=== PATIENT | female | born 1950 | race Caucasian/White ===

== ENCOUNTER 2017-02-17 10:15 | Emergency (ER) | payer BC, MEDICARE ==
[2017-02-17] MEDS ORDERED: Cyclobenzaprine TAB* 10 MG PO ONE (11:39)
[2017-02-17 12:27] VITALS: BP 142/72
--- NOTE | 2017-02-17 14:20 | RAD ---
INDICATION: Radicular neck pain. COMPARISON: There are no prior studies available for comparison. TECHNIQUE: Contiguous axial sections were obtained from the skull base through the T1 vertebra. Images were reconstructed in the sagittal and coronal planes. FINDINGS: There is straightening of the cervical spine. The vertebra are otherwise in normal alignment. No fracture is seen. At the C4-C5 level there is posterior uncinate process spurring and mild hypertrophic changes within the facet joints. There is moderate spinal canal narrowing and mild to moderate bilateral neural foraminal narrowing left greater than right. At the C5-C6 level there is posterior uncinate process spurring and mild hypertrophic changes within the facet joints. There is moderate spinal canal narrowing and moderate bilateral neural foraminal narrowing. At the C6-C7 level there is posterior uncinate process spurring. There is moderate spinal canal narrowing and mild to moderate bilateral neural foraminal narrowing. IMPRESSION: MODERATE DEGENERATIVE DISC DISEASE AND FACET OSTEOARTHRITIS WITH CHANGES MOST PROMINENT AT THE C4-C5, C5-C6 AND C6-C7 LEVELS GIVING RISE TO MODERATE SPINAL CANAL NARROWING AND BILATERAL NEURAL FORAMINAL NARROWING. IF THE PATIENT'S SYMPTOMS PERSIST RECOMMEND MR IMAGING FOR FURTHER EVALUATION.
--- NOTE | 2017-02-17 14:24 | UC ---
shivam Bishop Timothy, scribed for Claude Rios MD on 02/17/17 at 1140 . Neck Pain HPI - HPI Summary HPI Summary: Rubina Cortes is a 66 yo female presenting to [facility] claiming she has a pinched nerve in her neck, causing sharp 8/10 pain radiating to her right side of her neck and down her right shoulder for the past week. She states she was Tx 1.5 months ago for similar Sx with "muscle relaxer" by [facility] urgent care. She has not followed up with her primary care physician as her Sx resolved. She denies any known trauma. She denies any weakness, numbness, or parasthesia. Her MHx includes thyroid disease, afib, PVC, SVT, HLD, HTN, arthritis, , left shoulder surgery, anxiety, tobacco use. - History of Current Complaint Chief Complaint: UCBackPain Stated Complaint: PITCHED NERVE Time Seen by Provider: 02/17/17 11:30 Hx Obtained From: Patient Mechanism Of Injury: No Known Trauma Timing: Constant Onset/Duration: Sudden Onset, Lasting Days, Still Present Severity: Moderate Pain Intensity: 8 Pain Scale Used: 0-10 Numeric Location: Discrete At: - right neck, Radiates To: - right shoulder Character: Sharp - Allergies/Home Medications Allergies/Adverse Reactions: Allergies Allergy/AdvReac Type Severity Reaction Status Date / Time No Known Allergies Allergy Verified 02/17/17 10:22 PMH/Surg Hx/FS Hx/Imm Hx Endocrine History: Thyroid Disease Cardiovascular History: Hypertension, Atrial Fibrillation, Other Other Cardiovascular History: PVC, SVT, HLD - Surgical History Surgical History: Yes Surgery Procedure, Year, and Place: c section, left shoulder surgery, ablation - Family History Known Family History: Positive: Cardiac Disease - self Negative: Hypertension, Diabetes - Social History Occupation: Employed Full-time - pre-k teacher Alcohol Use: Occasionally Alcohol Amount: 3-4 MONTH Substance Use Type: None Smoking Status (MU): Former Smoker Type: Cigarettes Amount Used/How Often: 1/2 PPD Have You Smoked in the Last Year: Yes When Did the Patient Quit Smoking/Using Tobacco: 2012 - Immunization History Most Recent Influenza Vaccination: na Most Recent Tetanus Shot: unknown Most Recent Pneumonia Vaccination: na Review Of Systems Constitutional: Positive: Negative Skin: Positive: Negative Eyes: Positive: Negative ENT: Positive: Negative Respiratory: Positive: Negative Cardiovascular: Positive: Negative Gastrointestinal: Positive: Negative Genitourinary: Positive: Negative Musculoskeletal: Positive: Other: - right neck pain radiating to right shoulder Neurological: Positive: Negative Psychological: Positive: Negative All Other Systems Reviewed And Are Negative: Yes Physical Exam Triage Information Reviewed: Yes Vital Signs: Initial Vital Signs Temp 98.7 F 02/17/17 10:18 Pulse 84 02/17/17 10:18 Resp 18 02/17/17 10:18 BP 162/90 02/17/17 10:18 Pulse Ox 100 02/17/17 10:18 Vital Signs Reviewed: Yes Eyes: Positive: Conjunctiva Clear ENT: Positive: Normal ENT inspection, Pharynx normal Neck: Positive: Tenderness @ - low neck posterior, Other: - increased muscle spasms right trapezius area.. Negative: Nuchal Rigidity Respiratory: Positive: Lungs clear, Normal breath sounds, No respiratory distress, No accessory muscle use Cardiovascular: Positive: RRR, No Murmur, Pulses Normal, Brisk Capillary Refill Abdomen Description: Positive: Nontender Musculoskeletal: Positive: Strength Intact, ROM Intact Neurological: Positive: Alert, Muscle Tone Normal, Other: - CN 2-12 grossly intact, senory grossly intact bilateral, strength 5/5 throughout. Psychological: Positive: Normal Response To Family, Age Appropriate Behavior Skin Exam: Normal Diagnostics - Radiology CT C-Spine Xray Interpretation: No Acute Changes - IMPRESSION: MODERATE DEGENERATIVE DISC DISEASE AND FACET OSTEOARTHRITIS WITH CHANGES MOST PROMINENT AT THE C4-C5, C5- C6 AND C6-C7 LEVELS GIVING RISE TO MODERATE SPINAL CANAL NARROWING AND BILATERAL NEURAL FORAMINAL NARROWING. IF THE PATIENT'S SYMPTOMS PERSIST RECOMMEND MR IMAGING FOR FURTHER EVALUATION. Radiology Interpretation Completed By: Radiologist Re-Evaluation - Re-Evaluation First Eval Re-Evaluation Time: 13:23 Change: Unchanged Comment: Discussed preliminary CT results with Pt. Answered questions posed by Pt to best of ability. Neck Pain Course/Dx - Course Course Of Treatment: Rubina Cortes is a 66 yo female presenting to [facility] with 8/ 10 right side neck pain radiating to her right shoulder. Pt medication list reviewed this visit. Pt was counseled to follow up with her primary care physician regarding her recurrent Sx, or to present to [facility] for further evaluation. She will have a C-spine CT performed. In the urgent care course she received flexeril. Discussed CT C-Spine results with Dr. Rosado for preliminary reading as Pt was anxious to leave [facility]. CT C-spine suggests degenerative disc disease and face osteoarthritis, most prominet at C4-C5, C5-C6 , and C6-C7 giving rise to moderate spinal canal narrowing and bilateral neural foraminal narrowing. After clinical examination and review of imaging study results, she will be discharged home with appropriate instructions and follow up. The CT scan results as relayed verbally to me by Dr Rosado and the need for the patient to go to her PCP were discussed with the patient. She will call to follow up with PCP and have MRI arranged. - Differential Dx/Diagnosis Differential Dx/HQI/PQRI: Other - DJD, cervical radiculopathy Provider Diagnoses: cervical radiculopathy, DJD cervical spine - Physician Notification/Consults Discussed Patient Care With: Claude Rosado - Discussed Pt CT C-Spine and results. Time Discussed With Above Provider: 13:22 - Dr Rosado states there are no fractures. She has Degenerative disk disease, and spinal stenosis. He recommends follow up with MRI as outpatient with PCP. No acute finding. Discharge - Discharge Plan Condition: Stable Disposition: HOME Prescriptions: Cyclobenzaprine TAB* [Flexeril 10 MG TAB*] 10 mg PO TID PRN #14 tab PRN Reason: Spasms Patient Education Materials: Cervical Radiculopathy (ED), Degenerative Disc Disease (ED) Referrals: Taylor Looney MD [Primary Care Provider] - 2 Days Tatiana Rodriguez MD [Medical Doctor] - 2 Days Additional Instructions: Please follow up with your primary care physician and the orthopedist provided, Dr. Rodriguez, regarding your visit to urgent care today. Return to urgent care or the emergency department with any new or recurring symptoms. The documentation as recorded by the shivam boothe Timothy accurately reflects the service I personally performed and the decisions made by me, Claude Rios MD.
== END 2017-02-17 13:45 | disposition home or self-care (01) ==
LOC: UCEAST 10:15
DX: M54.12 Radiculopathy, cervical region (principal); M47.892 Other spondylosis, cervical region; E07.9 Disorder of thyroid, unspecified; I48.91 Unspecified atrial fibrillation; I49.3 Ventricular premature depolarization; I47.1 Supraventricular tachycardia; E78.5 Hyperlipidemia, unspecified; M19.90 Unspecified osteoarthritis, unspecified site; F41.9 Anxiety disorder, unspecified; Z87.891 Personal history of nicotine dependence
CPT/HCPCS: 72125; 99212; A9270-GY; G0463

== ENCOUNTER 2018-03-18 09:26 | Observation (INO) | payer BC, MEDICARE ==
[2018-03-18] MEDS ORDERED: NS 0.9% 1000 ML* 1,000 ML IV ONE (09:38)
--- NOTE | 2018-03-18 10:06 | ED ---
Dizziness - HPI Summary HPI Summary: Pt. is a 67-year-old female who presents to emergency department for complaints of dizziness x 4 days. Patient is unable to explain her dizziness. She states the room is not spinning but she feels unsteady on her feet. Patient denies unilateral numbness, tingling or weakness. She has ever had symptoms like this in the past. Patient admits to intermittent chest pressure but denies pain or shortness of breath. She denies recent illness. She also notes mild nausea without vomiting or diarrhea. No urinary symptoms. Patient has a history of a trial fibrillation and hypertension. She notes that has not been taking her anticoagulant for about 3-4 months because she ran out and did not get a refill. She states she has been taking her blood pressure medication daily as directed. Symptoms are moderate in severity. No current modifying factors. - History Of Current Complaint Chief Complaint: EDDizziness Stated Complaint: DIZZINESS Time Seen by Provider: 03/18/18 09:38 Hx Obtained From: Patient - Allergies/Home Medications Allergies/Adverse Reactions: Allergies Allergy/AdvReac Type Severity Reaction Status Date / Time No Known Allergies Allergy Verified 03/18/18 10:23 Home Medications: Home Medications Levothyroxine TAB* [Synthroid TAB*] 150 mcg PO DAILY 03/18/18 [History Confirmed 03/18/18] Verapamil SR CAP* [Calan Sr CAP*] 360 mg PO DAILY 03/18/18 [History Confirmed ] PMH/Surg Hx/FS Hx/Imm Hx Previously Healthy: Yes Endocrine/Hematology History: Reports: Hx Thyroid Disease Denies: Hx Diabetes Cardiovascular History: Reports: Hx Angina - TIGHTNESS, Hx Hypercholesterolemia , Hx Hypertension Respiratory History: Reports: Other Respiratory Problems/Disorders - EX SMOKER Denies: Hx Asthma, Hx Chronic Obstructive Pulmonary Disease (COPD) Musculoskeletal History: Reports: Hx Arthritis Psychiatric History: Reports: Hx Anxiety - Surgical History Surgery Procedure, Year, and Place: , left shoulder surgery, ablation Infectious Disease History: No Infectious Disease History: Denies: Hx Shingles, Traveled Outside the [place] in Last 30 Days - Family History Known Family History: Positive: Cardiac Disease - self Negative: Hypertension, Diabetes - Social History Occupation: Employed Full-time Lives: With Family Alcohol Use: Occasionally Alcohol Amount: 3-4 MONTH Substance Use Type: Reports: None Smoking Status (MU): Former Smoker Type: Cigarettes Amount Used/How Often: 1/2 PPD Have You Smoked in the Last Year: Yes Review of Systems Constitutional: Negative Negative: Fever, Chills Eyes: Negative Negative: Photophobia, Blurred Vision, Diplopia ENT: Negative Positive: Chest Pain Respiratory: Negative Negative: Shortness Of Breath, Cough Positive: Nausea. Negative: Abdominal Pain, Vomiting, Diarrhea Genitourinary: Negative Musculoskeletal: Negative Skin: Negative Negative: Headache, Weakness, Paresthesia, Numbness, Syncope, Slurred Speech All Other Systems Reviewed And Are Negative: Yes Physical Exam Triage Information Reviewed: Yes Vital Signs On Initial Exam: Initial Vitals Temp Pulse Resp BP Pulse Ox 97.6 F 99 20 170/124 98 03/18/18 09:28 03/18/18 09:28 03/18/18 09:28 03/18/18 09:28 03/18/18 09:28 Vital Signs Reviewed: Yes Appearance: Positive: Well-Appearing - Patient lying in bed, appears anxious but non-toxic. Answers appropriately. Skin: Positive: Warm, Dry Head/Face: Positive: Normal Head/Face Inspection Eyes: Positive: Normal Respiratory/Lung Sounds: Positive: Clear to Auscultation, Breath Sounds Present Cardiovascular: Positive: Normal, RRR Abdomen Description: Positive: Nontender, Soft Neurological: Positive: Normal, Sensory/Motor Intact, Alert, Oriented to Person Place, Time, CN Intact II-III, Abnormal Gait - Unsteady, Finger to Nose - normal. Negative: Facial Droop, Slurred Speech, Dysphagia, Pronator Drift Present Psychiatric: Positive: Anxious - Wilmer Coma Scale Best Eye Response: 4 - Spontaneous Best Motor Response: 6 - Obeys Commands Best Verbal Response: 5 - Oriented Coma Scale Total: 15 Diagnostics - Vital Signs Vital Signs Temp Pulse Resp BP Pulse Ox 03/18/18 09:28 97.6 F 99 20 170/124 98 - Laboratory Result Diagrams: 03/18/18 09:57 03/18/18 09:57 Lab Statement: Any lab studies that have been ordered have been reviewed, and results considered in the medical decision making process. Dizzy Course/Dx - Course Course Of Treatment: Pt. presenting to the ER for 4 days of dizziness. She is afebrile. Blood pressure elevated at 170/121. She has no focal neuro deficits on exam. Will obtain labs, EKG, chest x-ray and brain CT for further evaluation. IV fluids started. Labs and urine are unremarkable. CT scan is negative for acute findings, reading per radiology. Pt. was given a dose of meclizine. 1150: Pt. is still unsteady on her feet. She held onto the wall when ambulating to the bathroom. Concern for potential posterior stroke give hx of afib. and not anticoagulated. Pt. discussed with Dr. Schuster who recommends brain MRI and neurology consult. MRI brain ordered. I spoke with Dr. Bermudez, neurology, and he will consult on pt. Plan discussed with pt. and daughter. MRI is negative. On re-exam pt. is still c/o dizziness. Results discussed with Dr. Bermudez and consult requested for intractable vertigo. Dr. Bermudez is unable to consult on pt. till the morning. He recommends admission tonight. I spoke with Dr. Carr, hospitalist, who does not feel pt. needs to be admitted for vertigo and she would be appropriate for disposition. Hospitalist will consult. Pt. will be signed out to Dar Coronel PA-C for hospitalist recommendations and disposition. - Diagnoses Differential Diagnosis/HQI/PQRI: Anxiety, Benign Paroxysmal Positional Vertigo, Coronary Artery Disease, CVA, Dysrhythmia, Meniere's Disease, Medication Reaction, Metabolic Abnormality, Myocardial Infarction, Transient Ischemic Attack Provider Diagnoses: Vertigo Discharge - Sign-Out/Discharge Documenting (check all that apply): Sign-Out Patient Signing out patient TO: Dar Coronel - Discharge Plan Condition: Stable Referrals: Taylor Looney MD [Primary Care Provider] - - Billing Disposition and Condition Condition: STABLE
[2018-03-18 10:10] LABS: ABS Basophils 0.1 10^3/ul (0-0.2); ABS Eosinophils 0.2 10^3/ul (0-0.6); ABS Lymphocytes 1.9 10^3/ul (1.0-4.8); ABS Monocytes 0.9 10^3/ul (0-0.8); ABS Nucleated RBC 0 10^3/ul; Eosinophil % 1.9 % (0-6); Hematocrit 45 % (35-47); Hemoglobin 15.3 g/dl (12.0-16.0); Lymphocyte % 21.1 % (25-47); Mean Corpuscular HGB Conc 34 g/dl (31-36); Mean Corpuscular Hemoglobin 30 pg (27-31); Mean Corpuscular Volume 88 fL (80-97); Nucleated Red Blood Cells % 0.1; Platelet Count 356 10^3/ul (150-450); Red Blood Count 5.15 10^6/ul (4.00-5.40); Red Cell Distribution Width 15 % (10.5-15); White Blood Count 9.1 10^3/ul (3.5-10.8)
--- NOTE | 2018-03-18 10:11 | RAD ---
HISTORY: dizzy COMPARISONS: None TECHNIQUE: Multiple contiguous axial CT scans were obtained of the head without intravenous contrast. FINDINGS: HEMORRHAGE/INFARCT: There is no hemorrhage or acute infarct. MASSES/SHIFT: There is no mass or shift. EXTRA-AXIAL SPACES: There are no extra-axial fluid collections. SULCI AND VENTRICLES: The sulci and ventricles are normal in size and position for the patient's stated age. CEREBRUM: There are no focal parenchymal abnormalities. BRAINSTEM: There are no focal parenchymal abnormalities. CEREBELLUM: There are no focal parenchymal abnormalities. VESSELS: The vessels are grossly normal. PARANASAL SINUSES: The paranasal sinuses are clear. ORBITS: The orbits are unremarkable. BONES AND SOFT TISSUE: No bone or soft tissue abnormalities are noted. OTHER: None IMPRESSION: NO ACUTE INTRACRANIAL PATHOLOGY.
[2018-03-18] MEDS ORDERED: Meclizine TAB* 12.5 MG PO ONE (10:17)
[2018-03-18 10:19] LABS: INR 0.94 (0.77-1.02)
--- NOTE | 2018-03-18 10:19 | RAD ---
HISTORY: dizzy COMPARISONS: November 07, 2013 VIEWS: 1: frontal portable view of the chest at 10:17 AM FINDINGS: LINES AND TUBES: None. CARDIOMEDIASTINAL SILHOUETTE: The aorta is tortuous. The cardiomediastinal silhouette is otherwise normal for portable technique. PLEURA: The costophrenic angles are sharp. No pleural abnormalities are noted. LUNG PARENCHYMA: The lungs are clear. ABDOMEN: The upper abdomen is clear. There is no subphrenic gas. BONES AND SOFT TISSUES: No bone or soft tissue abnormalities are noted. IMPRESSION: NO ACTIVE CARDIOPULMONARY DISEASE.
[2018-03-18 10:26] LABS: EGFR Non-African American 73.9 (>60)
[2018-03-18 11:45] LABS: Urine Appearance Clear; Urine Blood Negative (Negative); Urine Color Yellow; Urine Ketones Negative (Negative); Urine Protein Negative (Negative); Urine Specific Gravity 1.018 (1.010-1.030); Urine Urobilinogen Negative (Negative)
--- NOTE | 2018-03-18 16:01 | RAD ---
HISTORY: ataxia COMPARISONS: Head CT dated March 18, 2018. TECHNIQUE: The following sequences were obtained of the head: Sagittal T1-weighted images, axial T2-weighted images, axial FLAIR images, axial susceptibility weighted images, axial T1-weighted images. Additionally, axial diffusion-weighted images were obtained with calculated apparent diffusion coefficients. FINDINGS: HEMORRHAGE/INFARCT: There is no hemorrhage or acute infarct. MASSES/SHIFT: There is no mass or shift. EXTRA-AXIAL SPACES/MENINGES: There are no extra-axial fluid collections. SULCI AND VENTRICLES: The sulci and ventricles are normal in size and position for the patient's stated age. CEREBRUM: There are no focal parenchymal abnormalities. BRAINSTEM: There are no focal parenchymal abnormalities. CEREBELLUM: There are no focal parenchymal abnormalities. The cerebellar tonsils are normal in size and position. SELLA: The sella is normal. PINEAL: The pineal region is clear. CP ANGLE/TEMPORAL BONES: The labyrinthine structures are grossly normal. VESSELS: Normal flow-voids are noted within the visualized vertebral vasculature. DIFFUSION ABNORMALITIES: There are no diffusion abnormalities. PARANASAL SINUSES/MASTOIDS: The paranasal sinuses are clear. ORBITS: The orbits are unremarkable. BONES AND SOFT TISSUE: No bone or soft tissue abnormalities are noted. OTHER: None IMPRESSION: UNREMARKABLE MRI OF THE BRAIN. THERE IS NO RESTRICTED DIFFUSION TO SUGGEST ACUTE INFARCT.
[2018-03-18] MEDS ORDERED: Albuterol 2.5 MG/3 ML NEB.SOL* (0.083%) INH PRN (18:48)
[2018-03-18] MEDS ORDERED: Al Hydrox/Mg Hydrox/Simet LIQ* 30 ML UDC PO PRN (18:48)
[2018-03-18] MEDS ORDERED: Ondansetron INJ* 2 MG/ML VIAL IV PRN (18:48)
--- NOTE | 2018-03-18 21:16 | HP ---
Amended report to enter cosigning physician. CC: Dr. Sousa; Dr. Dar Bermudez; Dr. Looney* ADMISSION HISTORY AND PHYSICAL: DATE OF ADMISSION: 03/18/18 PATIENT OF: Attending hospitalist, Dr. Amada Carr* (dictated by YVAN Nichols) PRIMARY CARE PHYSICIAN: Taylor Looney MD CHIEF COMPLAINT: Dizziness. HISTORY OF PRESENT ILLNESS: Mrs. Cortes is a 67-year-old female who carries past medical history significant for hypertension, hypothyroidism, and chronic lower extremity edema, as well as history of atrial fibrillation for which she was previously on Xarelto and decided to stop taking it about 6 months ago, who is also status post ablation about 2 years ago, who presented to the emergency room earlier today with complaints of 4-day history of increasing episodes of dizziness. The patient was a little vague on explaining her dizzy episodes, however, she describe it as positional dizziness that started on Friday when she bent over to get her recycles from the trash pump. Upon getting up, she felt very unsteady on her feet, but denied any syncope, chest pain, or any weakness or numbness to her extremities. She continues to have intermittent dizzy episodes on and off that was mostly upon moving her head. However, she started to get dizzy episodes as well at rest. She denied any similar symptoms in the past. She denies any recent cold, cough, viral infection, tinnitus or history of the vertigo in the past. She has occasional anxiety episodes, however, she denies any chest pain or shortness of breath. She also noted associated mild nausea, but denies any vomiting, diarrhea or changes in the bowel habits. She has a history of atrial fibrillation and hypertension and was previously on Xarelto for her atrial fibrillation. However, the patient decided to stop taking it about 6 months ago. She is also status post ablation about [address] Sousa who is her primary medical and health services manager. The patient, however, has been compliant with her other blood pressure medication taking them on a daily basis. She was evaluated in the emergency room and her vitals revealed no evidence of orthostatic hypotension, however, repeat orthostatic blood pressure and pulse is ordered and currently unavailable. She had laboratory workup that was essentially normal. Her urinalysis was clean as well. Her head CT showed no evidence of any hemorrhagic events and her brain MRI was negative for any ischemic stroke. Given her ongoing symptoms and the fact that she continued to have occasional dizzy spells in emergency room, we are asked to see the patient to consider admission for observation and to obtain neurological consultation. PAST MEDICAL HISTORY: As mentioned above significant for: 1. Hypertension. 2. Atrial fibrillation. 3. Hypothyroidism. 4. Chronic lower extremity edema. PAST SURGICAL HISTORY: Significant for hysterectomy, history of varicose vein stripping and atrial ablation about 2 years ago due to history of AFib. MEDICATIONS: Her medications at home include: 1. Inspra 25 mg p.o. b.i.d. 2. Lasix 20 mg p.o. daily. 3. Synthroid 150 mcg p.o. daily. 4. Verapamil 360 mg p.o. daily. 5. It is unknown what dose of Xarelto she was taking until she ran out of it about 6 months ago. ALLERGIES: She has no known drug allergies. SOCIAL HISTORY: The patient is a former smoker, who quit about 5 years ago. She drinks alcohol rarely. 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 FAMILY HISTORY: Significant for father due to an accident being electrocuted. Her mother due to leukemia in her 80s. REVIEW OF SYSTEMS: See HPI. Otherwise, 14 points review of systems were examined and were essentially negative. PHYSICAL EXAMINATION GENERAL: She is an anxious, overweight female, appears a little anxious but comfortable and in no acute distress or discomfort. VITAL SIGNS: Revealed a blood pressure 145/75, pulse of 78, temperature of 97.6 , respiration of 19 with O2 sat of 96% on room air. HEENT: Head is normocephalic, atraumatic. Sclerae are anicteric. PERRLA. EOMs intact. Pharynx is pink and moist. NECK: Supple. Trachea midline. No cervical adenopathy or thyromegaly. LUNGS: Clear to auscultation bilaterally. HEART: Regular rate and rhythm. Normal S1 and S2 without rubs, murmurs, or gallops. BACK: With normal curvature. No CVA tenderness. BREASTS: Exam deferred at this time. ABDOMEN: Soft, nontender, nondistended. No hernias, masses, or hepatosplenomegaly. RECTAL: Exam deferred at this time. EXTREMITIES: There is a 2+ bilateral lower extremity edema noted. No cyanosis or clubbing. NEUROLOGIC: She is awake, alert, and oriented x3. Her tongue is midline and handgrip was equal bilaterally. Her sensation is intact throughout. DIAGNOSTIC STUDIES/LABORATORY DATA: Laboratory workup; CBC with white count of 9,000, hemoglobin 15.3, hematocrit 45, and platelets of 356. Her chemistry panel essentially within normal limits including negative troponin and magnesium of 2.1 and normal LFTs. Her INR is 0.94 and urinalysis was essentially negative. ACCESSORY DIAGNOSTIC DATA: Her EKG showed sinus rhythm with ventricular rate of [address] changes. Her brain CT was negative for any hemorrhagic events and brain MRI showed no evidence of ischemic stroke. IMPRESSION: A 67-year-old female with past medical history of hypertension, atrial fibrillation requiring ablation 2 years ago for which she has been on Xarelto and decided to stop taking it 6 months ago, who presented to the emergency room with 4 days history of intermittent dizzy episodes, mostly positional in nature consistent with probable benign positional vertigo. ASSESSMENT AND PLAN: 1. Benign positional vertigo. The patient has exhibit classic symptoms of benign positional vertigo that appears to be worse with head rotation, however, she also describes some dizzy spells at rest in the absence of any chest pain or other associated symptoms. Given her history of atrial fibrillation and the fact that she has not took any anticoagulation medicine for the past 6 months, we would like to further evaluate for any possibility of transient ischemic attacks localized to her posterior cerebellum that could be also affecting her equilibrium. We have discussed the need for neurological consult and I talked to Dr. Johanna Weiss who also informed Dr. Bermudez who agreed to see the patient in the morning. I will hold any CTA of her head or neck for the time being and we will refer that to the neurologist in the morning if seemed to be indicated. At this time, we will provide symptomatic relief with meclizine as needed. 2. History of atrial fibrillation appears to be rate controlled at this time. I will resume her Xarelto at 20 mg dosage every day. 3. Hypothyroidism. We will resume her levothyroxine at home dose. 4. Hypertension. We will continue her Inspra and Lasix at home dose as well as verapamil. 5. Morbid obesity, supportive care. 6. DVT prophylaxis: The patient is a high risk given her age, swollen legs and her history of atrial fibrillation and she will be covered with subcu heparin for the time being. 7. Code status: She wishes to be a full code and her daughter is healthcare proxy carrier. 8. Disposition: Admit to telemetry for close observation, neurological check, symptomatic management of dizziness, and benign positional vertigo and to await neurological consultation in the morning for further recommendation. TIME SPENT: Approximately 60 minutes were spent admitting this patient with greater than 50% on obtaining history and performing physical exam. I have discussed the case with my attending, Dr. Carr, who agreed to plan of care. YVAN NICHOLS [id number]/CPS #: [id number] MTDD
[2018-03-18] MEDS: Rivaroxaban TAB(*) 20 MG TAB PO SCH (21:22)
[2018-03-18] MEDS: Meclizine TAB* 12.5 MG PO SCH (21:23)
[2018-03-18] MEDS: CMC: Epleronone (NF) 25 MG TAB PO SCH (21:23)
[2018-03-18] MEDS ORDERED: Heparin VIAL(*) 5000 UNITS/ML VIAL (FIVE THOUSAND) SUBCUT SCH (22:00)
[2018-03-19] MEDS: Meclizine TAB* 12.5 MG PO SCH ×3 (06:14→20:52)
[2018-03-19] MEDS: Levothyroxine TAB* 150 MCG TAB PO SCH (06:15)
[2018-03-19 07:27] LABS: ABS Basophils 0.1 10^3/ul (0-0.2); ABS Eosinophils 0.2 10^3/ul (0-0.6); ABS Neutrophils 4.6 10^3/ul (1.5-7.7); ABS Nucleated RBC 0 10^3/ul; Eosinophil % 3.1 % (0-6); Hematocrit 43 % (35-47); Hemoglobin 14.6 g/dl (12.0-16.0); Lymphocyte % 25.2 % (25-47); Mean Corpuscular HGB Conc 34 g/dl (31-36); Mean Corpuscular Hemoglobin 30 pg (27-31); Mean Corpuscular Volume 88 fL (80-97); Mean Platelet Volume 9.2 um3 (7.4-10.4); Nucleated Red Blood Cells % 0; Platelet Count 322 10^3/ul (150-450); Red Blood Count 4.92 10^6/ul (4.00-5.40); Red Cell Distribution Width 15 % (10.5-15); White Blood Count 7.9 10^3/ul (3.5-10.8)
[2018-03-19 07:49] LABS: EGFR Non-African American 85.1 (>60)
[2018-03-19] MEDS: Verapamil SR CAP* 180 MG PO SCH (08:32)
[2018-03-19] MEDS: CMC: Epleronone (NF) 25 MG TAB PO SCH ×2 (08:32→20:52)
[2018-03-19] MEDS: Furosemide TAB* 20 MG PO SCH (08:32)
[2018-03-19] MEDS: Acetaminophen TAB* 325 MG PO PRN ×2 (11:27→18:47)
[2018-03-19] MEDS ORDERED: Iohexol 350* (CONTRAST) 500 ML MDV IV ONE (15:42)
[2018-03-19] MEDS ORDERED: Ibuprofen TAB* 800 MG PO ONE (16:02)
--- NOTE | 2018-03-19 17:39 | RAD ---
INDICATION: Dizziness COMPARISON: MRI brain March 18, 2018; CT brain March 18, 2018 TECHNIQUE: Axial source images were acquired with coronal and sagittal reconstructions. CT angiographic technique was utilized with injection of 80 mL Omnipaque 350. FINDINGS: Aortic arch: There are no CT angiogram abnormalities of the arch or the great vessels arising from the arch. Right carotid: The common carotid artery, carotid bifurcation, extracranial portions of the internal carotid artery, carotid artery at the skull base, carotid siphon, and carotid termination appear normal. Left carotid:The common carotid artery, carotid bifurcation, extracranial portions of the internal carotid artery, carotid artery at the skull base, carotid siphon, and carotid termination appear normal. Right middle and anterior cerebral arteries: There are no CT angiographic abnormalities of the middle or anterior cerebral arteries. Left middle and anterior cerebral arteries: There are no CT angiographic abnormalities of the middle or anterior cerebral arteries Right vertebral: The CT angiographic appearance of the vertebral artery is normal. Left vertebral: The CT angiographic appearance of the vertebral artery is normal. Basilar artery: The basilar artery and basilar tip appear normal. Posterior cerebral arteries: The distal distribution of the right and left posterior cerebral arteries is normal. [place] of [place]: The CT angiographic appearance of the [place] of [place] is normal. Source images show no evidence of mass or adenopathy within the neck. There are no focal brain parenchymal abnormalities or abnormal areas of enhancement. IMPRESSION: NEGATIVE STUDY. NO CT EVIDENCE OF ANEURYSM, SIGNIFICANT STENOSIS, BRANCH OCCLUSION. CPT II Codes: 3100F [facility]
--- NOTE | 2018-03-19 17:52 | PN ---
Subjective Date of Service: 03/19/18 Interval History: Patient was seen and examined earlier today. She still has intermittent dizzy spills even at rest. Occasional mild R temporal headaches, but denies visual changes, blurred vision, nausea or vomiting. Her orthostatic vitals were stable when checked. Denies any chest pain, palpitations, weakness, numbness or slurred speech. Awaiting neurological consultations for further recommendations. She has no new complaints today, just anxious to know the reason behind her dizzy spills. Family History: Unchanged from Admission Social History: Unchanged from Admission Past Medical History: Unchanged from Admission Objective Active Medications: Acetaminophen (Tylenol Tab*) 975 mg PO Q6H PRN PRN Reason: FEVER/PAIN Last Admin: 03/19/18 11:27 Dose: 975 mg Al Hydrox/Mg Hydrox/Simethicone (Maalox Plus*) 30 ml PO Q6H PRN PRN Reason: INDIGESTION Albuterol (Ventolin 2.5 Mg/3 Ml Neb.Courtney*) 2.5 mg INH [id number] AWAKE PRN PRN Reason: sob/wheezing Eplerenone (Inspra (Nf)) 25 mg PO BID [facility]; Protocol Last Admin: 03/19/18 08:32 Dose: 25 mg Furosemide (Lasix Tab*) 20 mg PO DAILY [facility] Last Admin: 03/19/18 08:32 Dose: 20 mg Levothyroxine Sodium (Synthroid Tab*) 150 mcg PO DAILY@0600 [facility] Last Admin: 03/19/18 06:15 Dose: 150 mcg Meclizine HCl (Antivert Tab*) 50 mg PO Q8HR [facility] Last Admin: 03/19/18 14:27 Dose: 50 mg Ondansetron HCl (Zofran Inj*) 4 mg IV Q4H PRN PRN Reason: NAUSEA/VOMITING Rivaroxaban (Xarelto(*)) 20 mg PO QPM [facility] Last Admin: 03/18/18 21:22 Dose: 20 mg Verapamil HCl (Calan Sr Cap*) 360 mg PO DAILY [facility] Last Admin: 03/19/18 08:32 Dose: 360 mg Vital Signs - 8 hr 03/19/18 03/19/18 03/19/18 11:14 11:17 11:44 Temperature 99.8 F Pulse Rate 84 99 Respiratory 16 Rate Blood Pressure 137/81 154/92 (mmHg) O2 Sat by Pulse 96 Oximetry 03/19/18 15:19 Temperature 98.6 F Pulse Rate 87 Respiratory 12 Rate Blood Pressure 135/74 (mmHg) O2 Sat by Pulse 100 Oximetry Oxygen Devices in Use Now: None Appearance: Appears comfortable and in NAD Eyes: No Scleral Icterus, PERRLA Ears/Nose/Mouth/Throat: Clear Oropharnyx, Mucous Membranes Moist Neck: NL Appearance and Movements; NL JVP, Trachea Midline Respiratory: Symmetrical Chest Expansion and Respiratory Effort, Clear to Auscultation Cardiovascular: NL Sounds; No Murmurs; No JVD, RRR Abdominal: NL Sounds; No Tenderness; No Distention Extremities: No Edema Neurological: Alert and Oriented x 3, NL Sensation, NL Muscle Strength and Tone Nutrition: Taking PO's Result Diagrams: 03/19/18 07:03 03/19/18 07:03 Additional Lab and Data: . Microbiology and Other Data: . Diagnostic Imaging: Patient Name: SINDHU LUNA Medical Record#: [id number] Ordering Physician: Dar Bermudez MD Acct.#: [id number] : 1950 Age: 67 Sex: F Location: [address] [place] [address]/TELEMETRY Exam Date: 03/19/18 1320 ADM Status: ADM Patrick Order Information: CTA HEAD/NECK Accession Number: [id number] CPT: 99148 INDICATION: Dizziness COMPARISON: MRI brain March 18, 2018; CT brain March 18, 2018 IMPRESSION: NEGATIVE STUDY. NO CT EVIDENCE OF ANEURYSM, SIGNIFICANT STENOSIS, BRANCH OCCLUSION. CPT II Codes: 3100F [facility] <Electronically signed by Douglas Jones MD in OV> 03/19/18 0758 EKG Data: . Assess/Plan/Problems-Billing Assessment: A 67 y/o female with PMHx HTN and A-fib, who has not been taking her Xarelto for past 6 month, who presents to ED with 4 days of intermittent dizziness. - Patient Problems (1) Dizziness Current Visit: Yes Status: Acute Comment: - Negative work-up so far, no evidence of stroke, anyurism or vascular spasms. - Appears to get better with Meclizine - Occurs at rest, excluding possibility of positional vertigo. - Stable orthostatics - PT eval in AM to check stability and gait. - Neurological consult appreciated, recommendations discussed with Dr. Bermudez (2) Hypertension Current Visit: Yes Status: Acute Comment: - Continue Lasix, verapamil and Inspra (3) Morbid obesity Current Visit: Yes Status: Acute Comment: - Supportive care (4) Anxiety Current Visit: Yes Status: Acute Comment: - Baseline anxiety can be clearly seen on exam, will provide prn Ativan (5) Hypothyroidism Current Visit: Yes Status: Acute Comment: - Continue home Levothyroxine (6) DVT prophylaxis Current Visit: Yes Status: Acute Comment: - On Xarelto (7) Full code status Current Visit: Yes Status: Acute Status and Disposition: Inpatient, anticipate discharge tomorrow when clinically stable.
[2018-03-19] MEDS ORDERED: LORazepam TAB(*) 0.5 MG PO PRN (18:22)
[2018-03-19] MEDS: Rivaroxaban TAB(*) 20 MG TAB PO SCH (18:23)
--- NOTE | 2018-03-19 19:21 | CONS ---
CONSULTATION REPORT: DATE OF CONSULT: 03/19/2018. PATIENT OF: YVAN Maki; Dr. Looney; Dr. Sousa.* HISTORY: This is a 67-year-old woman, who has a history of hypertension; hypothyroidism; atrial fibrillation, previously on Xarelto, who has had no recent change in her medication, but since Friday when she woke up 5 days ago, has had some odd symptoms in her head. She has difficulty explaining exactly, says it is not room spinning, it is a low pressure or lightheaded feeling, but she also calls it dizziness. Initially, she says it is worse when she stands, gets up, but sometimes there when she moves her head, but during the exam, it was happening even when she was lying in bed and she says that it can happen this way as well and this was not with any changes in head, this is with her head just straight in a neutral position; she says it can happen that way. She has had no vomiting, but has had some mild nausea. There has been no headache or pain with this. No weakness or numbness. She has never had such symptoms before. There has been no change in medications. She has not been ill with any infection recently. No tinnitus. There has been no change in meds, no recent surgeries, no vaccinations. PAST MEDICAL HISTORY: She has a history of hypertension, atrial fibrillation, hypothyroidism, and chronic lower extremity edema. PAST SURGICAL HISTORY: She has had a hysterectomy, a history of varicose vein stripping, and atrial ablation status post AFib. MEDICATIONS: Include: 1. Inspra 25 b.i.d. 2. Lasix 20 mg daily. 3. Synthroid 150 mcg daily. 4. Verapamil 360 daily. ALLERGIES: She has no known allergies. FAMILY HISTORY: Father from a freak accident. Mother due to leukemia in her 80s. SOCIAL HISTORY: She is a former smoker, quit 5 years ago. She drinks alcohol rarely. She does not do any drugs. 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 REVIEW OF SYSTEMS: Review of systems is negative in all 14 spheres. PHYSICAL EXAM: Temperature 98.8, pulse 99, respirations 16, blood pressure 154/ 92. There were no orthostatic changes. She has not had fever. She is alert and oriented with normal speech and comprehension. Cranial nerves II through XII were intact. There was no nystagmus even while she was quite symptomatic. Fundi were benign. Motor exam revealed normal tone, strength, coordination including finger- to-nose even during her episodes. There is no numbness. Reflexes were 1 and equal. Toes were downgoing. Chest: Clear. Cardiovascular : Regular rate and rhythm at this moment. Abdomen: Soft. DIAGNOSTIC STUDIES/LAB DATA: MRI scan was reviewed and was normal. EKG showed normal sinus rhythm with left ventricular hypertrophy. Labs include normal white count, sed rate 15. There was no temporal tenderness. INR is 0.94. CMP was normal. UA was negative, specific gravity yesterday was 1.018. IMPRESSION AND PLAN: Rubina's history is unusual; it is hard to pin down exactly. She is having frequent symptoms even at rest and she is with a normal physical exam during this. It is possible this could represent ischemia, however, so we are getting a CTA now even though her MRI scan did not show evidence of stroke; this could be ischemia and not stroke. This could be peripheral vestibular syndrome, but she had no past pointing, no nystagmus during symptoms. If her CTA is negative, we will have Physical Therapy evaluate and see if maneuvers can help. This does not appear to be an orthostatic hypotension since her symptoms were coming frequently with her lying flat. Her blood pressure has been stable including during orthostatic maneuvers. I discussed this with her and her family that we may in a case like this rule out significant basilar artery insufficiency, stroke, and other diagnoses are very entertaining, may be hard to prove with laboratory exam. For now, I would have her on an aspirin a day and I will call her doctor to discuss. Thank you for sharing her case. [id number]/[facility] #: [id number] NIKOLAY
[2018-03-20] MEDS: Levothyroxine TAB* 150 MCG TAB PO SCH (06:14)
[2018-03-20] MEDS: Meclizine TAB* 12.5 MG PO SCH (06:14)
[2018-03-20] MEDS: Acetaminophen TAB* 325 MG PO PRN (08:30)
[2018-03-20] MEDS: Verapamil SR CAP* 180 MG PO SCH (08:31)
[2018-03-20] MEDS: CMC: Epleronone (NF) 25 MG TAB PO SCH (08:31)
[2018-03-20] MEDS: Furosemide TAB* 20 MG PO SCH (08:31)
[2018-03-20] MEDS ORDERED: Aspirin EC TAB* 81 MG TAB.EC PO SCH (09:00)
[2018-03-20 12:56] VITALS: BP 146/81
--- NOTE | 2018-03-20 21:23 | DS ---
AMENDED REPORT NOW INCLUDES COSIGNER DESIGNATION - ESIGNED BEFORE ADJUSTMENT CC: Dr. Looney; Dr. Bermudez * DISCHARGE SUMMARY: DATE OF ADMISSION: 03/18/18 DATE OF DISCHARGE: 03/20/18 ADMITTING HOSPITALIST: Dr. Amada Carr.* (DICTATED BY YVAN NICHOLS) ATTENDING HOSPITALIST: While the patient here was Dr. Carr as well. PRIMARY CARE PROVIDER: Dr. aTylor Looney. CONSULTING NEUROLOGIST: Dr. Dar Bermudez. PROCEDURES: None. ADMISSION DIAGNOSES: 1. Dizziness and vertigo. 2. Hypertension. 3. Atrial fibrillation. 4. Hypothyroidism. 5. Chronic lower extremity edema. 6. Anxiety. DISCHARGE DIAGNOSES: 1. Dizziness and vertigo. 2. Hypertension. 3. Atrial fibrillation. 4. Hypothyroidism. 5. Chronic lower extremity edema. 6. Anxiety. CONSULTATIONS: Dr. Dar Bermudez. PROCEDURES: None. HISTORY OF PRESENT ILLNESS: Mrs. Cortes is a 67-year-old female with past medical history of hypertension, hypothyroidism, chronic lower extremity edema as well as remote history of atrial fibrillation, for which she has been on Xarelto and the patient had stopped refilling her prescription about 6 months ago. She underwent a cardiac ablation for atrial fibrillation about 2 years ago and presented to the emergency room earlier on 03/18/18 with complaints of 4 -day history of increasing episodes of dizziness. The patient provides vague explanation of her dizzy spells; however, she initially had positional dizziness and vertigo every time she bent over or moved her head starting last Friday; however, her dizzy episodes continued to happen also at rest. Her symptoms have gotten progressively worse, for which she presented to the emergency room for further evaluation. She has previous history of atrial fibrillation; however, her EKG in the ED showed normal sinus rhythm with no evidence of AFib. She was on Xarelto for a period of time; however, she stopped taking it on her own about 6 months ago. She had extensive evaluation in the emergency room including laboratory workup that revealed normal white count and normal chemistry panel. She had CT scan of the brain as well as an MRI that revealed no acute findings. Given her ongoing symptoms and her no improvement of dizzy spells, despite taking meclizine, we were asked to see the patient for further evaluation and to consider Neurological consult. HOSPITAL COURSE: The patient was admitted under hospitalist services on . She was monitored at the telemetry unit with periodic neurological checks. The patient denied any dizziness, weakness, numbness, slurred speech, headaches , or any other associated symptoms. She was seen by Dr. Bermudez on the day for consultation. She reports intermittent left temporal headache, which ESR was added to her laboratory workup and revealed normal findings with no evidence of tenderness of the anglican or history of temporal arteritis. Neurological consultation revealed normal neurologic exam and her head and neck CTA was obtained revealing no evidence of ischemia or aneurysm. It was felt that her symptoms might not be related to any positional vertigo since her dizzy spells occur sometimes at rest. The patient continued to improve slowly with less dizzy episodes. Her orthostatic vitals were obtained and there were no significant changes noted. The patient denied any chest pain, syncopal episodes , or any recurrent headaches. She had experienced no visual changes, double vision, or blurred vision. On the discharge day, she was feeling much better, taking meclizine every 8 hours as needed for her dizzy episode. She had a Physical Therapy evaluation and treatment that was unable to assess her head tilt exam due to her meclizine intake. Recommendations were given to perform PT evaluation and treatment as an outpatient. Dr. Bermudez discussed that his consultation with me and that he recommended to maintain the patient on a baby aspirin and keep her on her Xarelto as well. On exam this morning, her vitals were stable and the patient was afebrile. Her ENT exam was unremarkable. Her lungs were clear to auscultation bilaterally. Her heart was regular rate and rhythm without rubs, murmurs, or gallops. Her abdomen was soft, nontender, and nondistended. Her neurological exam was essentially unremarkable with good bilateral handgrip and normal sensation bilaterally. Her labs today revealed hemoglobin of 14.6, hematocrit of 43, platelets of 322, and white count of 7900. Her chemistry panel was essentially within normal limits. The patient will be discharged to home today and will be seen in the next 1 or 2 weeks by primary care physician for a followup. I have provided her with additional refill of all her home medication including a new script for Xarelto to take as prescribed. DISCHARGE MEDICATIONS: Include: 1. Synthroid 150 mcg p.o. daily. 2. Aspirin 81 mg p.o. daily. 3. Inspra 25 mg p.o. b.i.d. 4. Lasix 20 mg p.o. daily. 5. Ativan 0.5 mg p.o. q.6 hours as needed for anxiety. 6. Meclizine 50 mg p.o. t.i.d. as needed for dizziness. 7. Xarelto 20 mg p.o. q.h.s. 8. Verapamil 360 mg p.o. daily. DISPOSITION: Discharged to home in a stable condition and to follow up with primary care physician in 1 to 2 weeks. YVAN NICHOLS [id number]/[facility] #: [id number] MTDD
== END 2018-03-20 15:00 | disposition home or self-care (01) ==
LOC: ED 09:26 → MEDTELE 19:17
PROVIDERS: ADMIT Internal Medicine; ATTEND Internal Medicine
DX: R42 Dizziness and giddiness (principal); I10 Essential (primary) hypertension; I48.91 Unspecified atrial fibrillation; E03.9 Hypothyroidism, unspecified; R60.0 Localized edema; F41.9 Anxiety disorder, unspecified; Z79.82 Long term (current) use of aspirin; H81.10 Benign paroxysmal vertigo, unspecified ear; Z87.891 Personal history of nicotine dependence
CPT/HCPCS: 36415; 70450; 70496; 70498; 70551; 71045; 80048; 80053; 81003; 83735; 84484; 85025; 85610; 85652; 93005; 96365; 99284; A9270-GY; G0378; G8978-GP-CJ; G8979-GP-CJ; G8980-GP-CJ; Q9967

== ENCOUNTER 2019-06-26 13:12 | Inpatient (IN) | payer MEDICARE, BC ==
--- OUTSIDE RECORDS SUMMARY | 2019-06-26 13:30 | XMS REPORT | Summary of Care ---
:1950 Author Organization [facility] Address [address] [place] [address] Care Team Providers Name Role Phone Taylor Looney Primary Care Provider Reason for Referral Refer to Department Only (Routine) Status Reason Specialty Diagnoses / Referred By Referred To Procedures Contact Contact Authorized CARDIOLOGY / Diagnoses Short of breath on exertion Paroxysmal atrial fibrillation (HCC) Akbar Looney [facility] MD [facility] [address] [place] [address] [address] [address] [place], [place] Phone: [phone] Phone: Diagnostic Testing (Routine) Status Reason Specialty Diagnoses / Referred By Referred To Procedures Contact Contact Pending Review Diagnoses Short of breath on exertion Paroxysmal atrial fibrillation (HCC) Lisandra Looney ECHOCARDIOGRAM TTE MD Taylor [facility] [place] [id number] Reason for Visit Reason Comments Check Up pt stated cant cacth her breath,pt stated had asthma when youngw with a wheezing , with excertion fine at rest except for the wheezing is at rest , pt also c/o her wieght Encounter Details Date Type Department Care Team Description 06/08/2019 Office Visit [facility] Short of breath on exertion (Primary Dx); Practice MD Taylor Acquired hypothyroidism; [address] [facility] [address] Paroxysmal atrial fibrillation (HCC) [place] [address] [place] [address] [phone] Allergies Active Allergy Reactions Severity Noted Date Comments No Known Drug Allergy 04/03/2009 documented as of this encounter (statuses as of 06/08/2019) Medications Medication Sig Dispensed Refills Start Date End Date Status Eplerenone 25 MG Indications: pt 0 12/05/2015 Active Oral TabIndications: takes 2 pt takes 2 meclizine (ANTIVERT) Take 1 Tab by 60 Tab 1 10/16/2018 Active 25 MG Oral mouth THREE TabIndications: TIMES DAILY Dizziness NEEDED for dizziness/verti go. atorvastatin Take 1 Tab by 30 Tab 2 10/19/2018 Active (LIPITOR) 20 MG Oral mouth DAILY. TabIndications: Other hyperlipidemia rivaroxaban Take 1 Tab by 30 Tab 5 11/20/2018 Active (XARELTO) 20 MG Oral mouth DAILY. Tab furosemide (LASIX) TAKE ONE TABLET 30 Tab 5 04/16/2019 Active 20 MG Oral Tab BY MOUTH EVERY DAY verapamil CR TAKE TWO 60 Cap 5 04/27/2019 Active (COVERA-HS) 180 MG CAPSULES BY Oral CAPSULE SR 24 MOUTH EVERY DAY HR celeCOXIB (CELEBREX) Take 1 Cap by 30 Cap 0 04/30/2019 Active 200 MG Oral Cap mouth DAILY. HYDROcodone-acetamin Take 1 Tab by 90 Tab 0 05/14/2019 Active ophen (NORCO) 5-325 mouth EVERY MG Oral EIGHT HOURS TabIndications: NEEDED (pain). Primary Max Daily osteoarthritis of Amount: 3 Tabs. both knees levothyroxine TAKE ONE TABLET 30 Tab 0 06/03/2019 Active (SYNTHROID) 175 MCG BY MOUTH EVERY Oral Tab MORNING BEFORE BREAKFAST torsemide (DEMADEX) Take 2 Tabs by 60 Tab 0 06/08/2019 Active 20 MG Oral Tab mouth DAILY. lisinopril Take 1 Tab by 30 Tab 1 06/08/2019 Active (PRINIVIL, ZESTRIL) mouth DAILY. 0 10 MG Oral Tab Take 1 tablet daily TRANSDERM-SCOP, 1.5 Place 1 mg onto 10 Patch 0 11/02/2018 Discontinued MG, 1 MG/3DAYS skin EVERY 9 Transdermal PATCH 72 THREE DAYS. HRIndications: Brand name only Dizziness of unknown cause documented as of this encounter (statuses as of 06/08/2019) Active Problems Problem Noted Date Primary osteoarthritis of both knees 04/29/2019 Essential hypertension 02/15/2016 Knee pain, bilateral 04/20/2014 Atrial fibrillation 11/02/2013 Shoulder pain 08/25/2013 Knee osteoarthritis 05/03/2013 Bilateral knee pain 02/23/2013 BMI 34.0-34.9,adult 02/17/2013 Degenerative lumbar spinal stenosis 03/23/2010 Hypothyroidism 04/03/2009 Hx: Varicose Veins of Legs 04/03/2009 documented as of this encounter (statuses as of 06/08/2019) Immunizations Name Administration Dates Next Due Depo Medrol (120mg) 08/25/2013 Depo Medrol (80mg) 04/20/2014, 02/23/2013 Euflexxa (4ml) 05/03/2013, 04/26/2013, 04/19/2013 Influenza (IM) Preservative Free 04/30/2016, 08/01/2015, 08/11/2014 Influenza Vaccine High Dose 04/03/2018, 05/13/2017 Pneumococcal Conjugate(13 Valent) 10/28/2017 TDAP Vaccine 02/08/2015 documented as of this encounter Social History Tobacco Use Types Packs/Day Years Used Date Former Smoker Cigarettes 0.5 30 Quit: 05/09/2013 Smokeless Tobacco: Never Used Comments: 1 pk/day Alcohol Use Drinks/Week oz/Week Comments Yes 0 Standard drinks or equivalent 0.0 Occasional Sex Assigned at Date Recorded Not on file Job Start Date Occupation Industry Not on file Not on file Not on file Travel History Travel Start Travel End No recent travel history available. documented as of this encounter Last Filed Vital Signs Vital Sign Reading Time Taken Comments Blood Pressure 170/100 06/08/2019 9:49 AM EST Pulse 93 06/08/2019 9:49 AM EST Temperature 37.3 06/08/2019 9:49 AM C (99.2 EST F) Respiratory Rate - - Oxygen Saturation 97% 06/08/2019 9:49 AM EST Inhaled Oxygen Concentration - - Weight 151.6 kg (334 lb 3.2 oz) 06/08/2019 9:49 AM EST Height 172.7 cm (5' 8") 06/08/2019 9:49 AM EST Body Mass Index 50.81 06/08/2019 9:49 AM EST documented in this encounter Patient Instructions Patient InstructionsTaylor Looney MD - 06/08/2019 9:40 AM EST1. Stop Furosemide 2. Start Torsemide 40 mg once a day 3. Take Lisinopril 10 mg once a day 4. Schedule ECHO- 5. Schedule appointment with cardiology 6. Follow up 06/11/19 documented in this encounter Progress Notes Taylor Looney MD - 06/08/2019 9:40 AM EST Patient: Rubina Cortes Date of Service: 06/08/2019 Subjective: Rubina Cortes is a 69-y.o. female who presents for Chief Complaint Patient presents with Check Up pt stated cant cacth her breath,pt stated had asthma when youngw with a wheezing , with excertion fine at rest except for the wheezing is at rest , pt also c/o her wieght Patient with history of paroxysmal atrial fibrillation, HTN comes with complains of weight gain, exertional SOB , wheezing gradually increasing over last few weeks No chest pains. Some short episodes of palpitations. Uses additional pillows at night BP is high today Hasn't seen cardiology for several years. Last ECHO- done in 01/2017 showed normal LV function, diastolic dysfunction, dilated aortic root, dilated R heart Past Medical History: Diagnosis Date Atrial fibrillation (HCC) 11/2013 DDD (degenerative disc disease) Hx: Varicose Veins of Legs 04/03/2009 Hypothyroidism 04/03/2009 Migraine Phlebitis Spinal stenosis Outpatient Medications as of 06/08/2019 Medication Sig Dispense Refill atorvastatin (LIPITOR) 20 MG Oral Tab Take 1 Tab by mouth DAILY. 30 Tab 2 celeCOXIB (CELEBREX) 200 MG Oral Cap Take 1 Cap by mouth DAILY. 30 Cap 0 Eplerenone 25 MG Oral Tab Indications: pt takes 2 furosemide (LASIX) 20 MG Oral Tab TAKE ONE TABLET BY MOUTH EVERY DAY 30 Tab 5 HYDROcodone-acetaminophen (NORCO) 5-325 MG Oral Tab Take 1 Tab by mouth EVERY EIGHT HOURS NEEDED (pain). Max Daily Amount: 3 Tabs. 90 Tab 0 levothyroxine (SYNTHROID) 175 MCG Oral Tab TAKE ONE TABLET BY MOUTH EVERY MORNING BEFORE BREAKFAST 30 Tab 0 meclizine (ANTIVERT) 25 MG Oral Tab Take 1 Tab by mouth THREE TIMES DAILY NEEDED for dizziness/vertigo. 60 Tab 1 rivaroxaban (XARELTO) 20 MG Oral Tab Take 1 Tab by mouth DAILY. 30 Tab 5 verapamil CR (COVERA-HS) 180 MG Oral CAPSULE SR 24 HR TAKE TWO CAPSULES BY MOUTH EVERY DAY 60Cap 5 No current facility-administered medications on file as of 06/08/2019. Allergies Allergen Reactions No Known Drug Allergy Objective: BP 170/100 (BP Location: Left arm, Patient Position: Sitting) Pulse 93 Temp 99.2 F (37.3 C) Ht 5' 8" (1.727 m) Wt 334 lb 3.2 oz (151.6 kg) SpO2 97% BMI 50.81 kg/m2 GENERAL: alert, fatigued THROAT: lips, mucosa, and tongue normal: teeth and gums normal NECK: supple, symmetrical, trachea midline and no adenopathy LUNGS: clear to auscultation bilaterally HEART: regular rate and rhythm, S1, S2 normal, no murmur, click, rub or gallop EXTREMITIES: edema +1 EKG: unchanged from previous tracings, normal sinus rhythm, LVH Chest X-ray: no acute findings ICD-9-CM ICD-10-CM 1. Short of breath on exertion 786.05 R06.02 COMPREHENSIVE METABOLIC PANEL CHF? CBC WITH DIFFERENTIAL XR CHEST 2 VIEW PA AND LATERAL (STANDARD) AMBULATORY 12 LEAD EKG (GLOBAL) ECHOCARDIOGRAM TTE REFER TO CARDIOLOGY (GENERAL) NT PROBNP 2. Acquired hypothyroidism 244.9 E03.9 THYROID STIMULATING HORMONE FREE T4 3. Paroxysmal atrial fibrillation (HCC) 427.31 I48.0 COMPREHENSIVE METABOLIC PANEL AMBULATORY 12 LEAD EKG (GLOBAL) ECHOCARDIOGRAM TTE REFER TO CARDIOLOGY (GENERAL) Patient Instructions 1. Stop Furosemide 2. Start Torsemide 40 mg once a day 3. Take Lisinopril 10 mg once a day 4. Schedule ECHO- 5. Schedule appointment with cardiology 6. Follow up 06/11/19 Author: Taylor Looney MD documented in this encounter Plan of Treatment Date Type Specialty Care Team Description 06/11/2019 Orders Only Cardiology 06/11/2019 Office Visit Family Practice Taylor Looney MD [address] [place] [address] [phone] Name Type Priority Associated Diagnoses Date/Time COMPREHENSIVE METABOLIC Lab Routine Short of breath on 06/08/2019 11:10 AM PANEL exertion EST Paroxysmal atrial fibrillation (HCC) THYROID STIMULATING Lab Routine Acquired hypothyroidism 06/08/2019 11:10 AM HORMONE EST FREE T4 Lab Routine Acquired hypothyroidism 06/08/2019 11:10 AM EST CBC WITH DIFFERENTIAL Lab Routine Short of breath on 06/08/2019 11:10 AM exertion EST XR CHEST 2 VIEW PA AND Imaging Routine Short of breath on 06/08/2019 10:41 AM LATERAL (STANDARD) exertion EST NT PROBNP Lab Routine Short of breath on 06/08/2019 11:10 AM exertion EST Name Type Priority Associated Diagnoses Order Schedule AMBULATORY 12 LEAD EKG EKG Routine Short of breath on Ordered: 06/08/2019 (GLOBAL) exertion Paroxysmal atrial fibrillation (HCC) ECHOCARDIOGRAM TTE CV Lab Routine Short of breath on Expected: exertion 06/08/2019, Paroxysmal atrial Expires: 07/12/2020 fibrillation (HCC) Name Type Priority Associated Diagnoses Order Schedule REFER TO CARDIOLOGY Referral Routine Short of breath on Expected: (GENERAL) exertion 06/08/2019, Expires: Paroxysmal atrial 06/08/2020 fibrillation (HCC) Health Maintenance Due Date Last Done Comments DEPRESSION SCREENING 1963 ZOSTER IMMUNIZATION SERIES 2001 (1 of 2) COLONOSCOPY SCREENING 02/18/2016 02/17/2007 OSTEOPOROSIS SCREENING 2016 MEDICARE ANNUAL WELLNESS 10/28/2018 10/28/2017 VISIT PNEUMOCOCCAL 65+YRS (2 of 2 10/28/2018 10/28/2017 - PPSV23) INFLUENZA VACCINE (#1) 2019 04/03/2018, 05/13/2017, 04/30/2016, Additional history exists DIABETES SCREENING 10/17/2019 10/16/2018, 09/23/2017, 08/01/2015, Additional history exists LIPID DISORDER SCREENING 10/20/2019 10/19/2018, 10/16/2018, 09/23/2017, Additional history exists MAMMOGRAM (SCREENING) 11/18/2019 11/17/2018, 10/28/2017, 02/15/2016, Additional history exists FALL RISK ASSESSMENT 06/08/2020 06/08/2019, 06/08/2019 HPV IMMUNIZATION SERIES Aged Out No longer eligible based on patient's age to complete this topic MENINGOCOCCAL VACCINE IMM Aged Out No longer eligible based on patient's age to complete this topic documented as of this encounter Goals Goal Patient Goal Associated Recent Patient-Stated? Author Type Problems Progress Blood Pressure Blood Pressure Essential 170/100 No Aayush, < 140/90 hypertension (06/08/2019 Taylor, 9:49 AM EST) Note: Hypertension Care Plan Based on the patient's clinical history and according to JNC 8 guidelines target blood pressure goal is less than 140/90. Based on the patient's last blood pressure of BP: (!) 154/96 the patient is at above goal. As your provider, it is important that I advise you regarding: your current medications and help you with any challenges you may face taking your medications as directed (ex. instructions, cost, side effects, and interactions). Important lifestyle changes: exercise, weight reduction and dietary sodium reduction your clinical goals and how you can achieve success: weight reduction and exercise plan medication management: adjusted medications as appropriate patient education/self-management tools provided: Yes To successfully manage my Hypertension I will: monitor my blood pressure daily, understanding that my goal is less than 140/ 90 per my healthcare provider's recommendation. I will schedule an appointment with my provider if consistent abnormal readings greater than 160/100. take medications every day as prescribed by my healthcare provider and if unable to take them I will discuss with my provider. monitor for symptoms of chest pain, chest tightness/pressure, irregular heartbeat, persistent dizziness, radiating arm pain, and neck or jaw pain. If any of these symptoms are noticed I will seek medical attention immediately by calling 911 exercise/walk 30 minutes 5 day(s) per week. If I experience chest pain, chest tightness, or shortness of breath, I will seek medical attention immediately. follow a diet rich in fruits, vegetables, and low-fat dairy products with reduced content of saturated & total fat. I will reduce my sodium intake daily. An example is the DASH diet. To obtain more information please refer to the DASH Eating Plan listed in Educational Resources. record my blood pressure results. [employer] is safe and secure way for you to do this in your medical record online. try to obtain an ideal body weight. My recent weight was Weight: 245 lb ( 111.1 kg). My weight loss goal for my next office visit is 240. limit alcohol consumption. For men two drinks per day and women one drink per day. if currently smoking, will discuss how to quit smoking with my healthcare provider and work towards quitting. Educational Resources: National Heart, Lung, & Blood [place] http://nhlbi.nih.gov/hbp/index.html The DASH Diet Eating Plan http://www.nhlbi.nih.gov/health/health-topics/ topics/dash/ Academy of Nutrition & DIetetics http://eatright.org National Smoking Cessation Site http://smokefree.gov Blood Pressure < Blood Pressure 170/100 (06/08/2019 No Taylor Looney, 150/90 9:49 AM EST) Note: This is an individualized treatment (blood pressure) goal for Rubina Cortes: Displayed above (on the left) is your goal for blood pressure control. Your most recent blood pressure is also shown above, on the right. You should try to achieve blood pressures that are lower than your goal listed above (on the left). Weight loss vs. 18 mo Lifestyle 0 (06/08/2019 9:49 AM Taylor Boss MD max (lbs) >= 10 EST) Note: This is an individualized lifestyle goal for Rubina Cortes: Your body mass index (BMI) is more than 30. You should lose weight. A reasonable starting goal is to lose 10 pounds. Displayed above is how many pounds you have lost thus far towards your 10 pound weight loss goal. Take all prescribed medications as Self-management Taylor Boss MD directed Note: This is an individualized self-management goal for Rubina Cortes: Please take all prescribed medications as directed. 1. Do not skip doses. If you cannot afford your medications, talk with your doctor. 2. Use a pill reminder system such as a pill box if needed. Your pharmacist can help you with this. 3. Contact your Pharmacy 5 days before your medication runs out. If you cannot take your medications for any reasons, talk with your doctor. 4. Please bring all of your medication bottles and inhalers (or a list of all your medications/inhalers) with you to every visit. Potential barriers to meeting all of your care plan goals will continue to be addressed on an ongoing basis. documented as of this encounter Results Not on filedocumented in this encounter Visit Diagnoses Diagnosis Short of breath on exertion - Primary Shortness of breath Acquired hypothyroidism Unspecified hypothyroidism Paroxysmal atrial fibrillation (HCC) Atrial fibrillation documented in this encounter Insurance Payer Benefit Plan / Subscriber ID Effective Dates Phone Address Type Group [facility] 2017-Present [employer] MEDICARE MEDICARE PART A & xxxxxxxxxx 2016-Present Medicare B (Work) documented as of this encounter
--- OUTSIDE RECORDS SUMMARY | 2019-06-26 13:30 | XMS REPORT | Summary of Care ---
:1950 Author Organization [facility] Address [address] [place] [address] Care Team Providers Name Role Phone Taylor Looney Primary Care Provider Reason for Visit Reason Comments Follow Up Bilateral knee pain. Patient here for bilateral knee injections. Encounter Details Date Type Department Care Team Description 04/29/2019 Office Visit [facility] Johanna Salinas, Primary osteoarthritis - [place] RPA-C of both knees (Primary [address] Dx) [address] [place], [place] [id number] [place] [address] [phone] Allergies Active Allergy Reactions Severity Noted Date Comments No Known Drug Allergy 04/03/2009 documented as of this encounter (statuses as of 04/29/2019) Medications Medication Sig Dispensed Refills Start Date End Date Status Eplerenone 25 MG Oral Indications: pt 0 12/05/2015 Active TabIndications: pt takes 2 takes 2 meclizine (ANTIVERT) 25 Take 1 Tab by 60 Tab 1 10/16/2018 Active MG Oral TabIndications: mouth THREE TIMES Dizziness DAILY NEEDED for dizziness/vertigo . atorvastatin (LIPITOR) Take 1 Tab by 30 Tab 2 10/19/2018 Active 20 MG Oral mouth DAILY. TabIndications: Other hyperlipidemia TRANSDERM-SCOP, 1.5 MG, Place 1 mg onto 10 Patch 0 11/02/2018 Active 1 MG/3DAYS Transdermal skin EVERY THREE PATCH 72 HRIndications: DAYS. Brand name Dizziness of unknown only cause rivaroxaban (XARELTO) Take 1 Tab by 30 Tab 5 11/20/2018 Active 20 MG Oral Tab mouth DAILY. HYDROcodone-acetaminoph Take 1 Tab by 90 Tab 0 03/26/2019 Active en (NORCO) 5-325 MG mouth EVERY EIGHT Oral TabIndications: HOURS NEEDED Primary osteoarthritis (pain). Max Daily of both knees Amount: 3 Tabs. furosemide (LASIX) 20 TAKE ONE TABLET 30 Tab 5 04/16/2019 Active MG Oral Tab BY MOUTH EVERY DAY levothyroxine TAKE ONE TABLET 30 Tab 0 04/20/2019 Active (SYNTHROID) 175 MCG BY MOUTH EVERY Oral Tab MORNING BEFORE BREAKFAST verapamil CR TAKE TWO CAPSULES 60 Cap 5 04/27/2019 Active (COVERA-HS) 180 MG Oral BY MOUTH EVERY CAPSULE SR 24 HR DAY Hospital, Clinic, or Other Ordered Dose Route Frequency Start Date End Date Status Facility Administered Medication methylPREDNISolone acetate 160 mg IX X1 04/29/2019 04/29/2019 Ended (DEPO-MEDROL) injection 80 MG/MLIndications: Primary osteoarthritis of both knees documented as of this encounter (statuses as of 04/29/2019) Active Problems Problem Noted Date Primary osteoarthritis of both knees 04/29/2019 Essential hypertension 02/15/2016 Knee pain, bilateral 04/20/2014 Atrial fibrillation 11/02/2013 Shoulder pain 08/25/2013 Knee osteoarthritis 05/03/2013 Bilateral knee pain 02/23/2013 BMI 34.0-34.9,adult 02/17/2013 Degenerative lumbar spinal stenosis 03/23/2010 Hypothyroidism 04/03/2009 Hx: Varicose Veins of Legs 04/03/2009 documented as of this encounter (statuses as of 04/29/2019) Immunizations Name Administration Dates Next Due Depo [...] Sign Reading Time Taken Comments Blood Pressure 175/102 04/29/2019 10:43 AM EDT Pulse 95 04/29/2019 10:43 AM EDT Temperature - - Respiratory Rate - - Oxygen Saturation - - Inhaled Oxygen Concentration - - Weight 124.7 kg (275 lb) 04/29/2019 10:43 AM EDT Height 172.7 cm (5' 8") 04/29/2019 10:43 AM EDT Body Mass Index 41.81 04/29/2019 10:43 AM EDT documented in this encounter Progress Notes Johanna Salinas RPA-C - 04/29/2019 10:45 AM EDT Name: Rubina Cortes : 1950 Date of Service: 04/29/2019 Referring Provider: Barrett Primary Care Provider: Taylor Looney Chief Complaint Patient presents with Follow Up Bilateral knee pain. Patient here for bilateral knee injections. History of Present Illness: Rubina Cortes is a 68-y.o. female who presents for a follow up of her Bilateral knee pain.The patient states her pain is increasing. Has known DJD bilateral knees. Had cortisone injections 4 months ago and states they lasted for quite awhile. Interested in more injections. Past Medical History: Diagnosis Date Atrial fibrillation (HCC) 11/2013 DDD (degenerative disc disease) Hx: Varicose Veins of Legs 04/03/2009 Hypothyroidism 04/03/2009 Migraine Phlebitis Spinal stenosis Past Surgical History: Procedure Laterality Date CARDIAC ABLATION fall 2013 [facility] CLASSICAL 1981 VARICOSE LIGAT STRIP 2006 Current Outpatient Medications Medication Sig atorvastatin (LIPITOR) 20 MG Oral Tab Take 1 Tab by mouth DAILY. Eplerenone 25 MG Oral Tab Indications: pt takes 2 furosemide (LASIX) 20 MG Oral Tab TAKE ONE TABLET BY MOUTH EVERY DAY HYDROcodone-acetaminophen (NORCO) 5-325 MG Oral Tab Take 1 Tab by mouth EVERY EIGHT HOURS NEEDED (pain). Max Daily Amount: 3 Tabs. levothyroxine (SYNTHROID) 175 MCG Oral Tab TAKE ONE TABLET BY MOUTH EVERY MORNING BEFORE BREAKFAST meclizine (ANTIVERT) 25 MG Oral Tab Take 1 Tab by mouth THREE TIMES DAILY NEEDED for dizziness/vertigo. rivaroxaban (XARELTO) 20 MG Oral Tab Take 1 Tab by mouth DAILY. TRANSDERM-SCOP, 1.5 MG, 1 MG/3DAYS Transdermal PATCH [address] 1 mg onto skin EVERY THREE DAYS. Brand name only verapamil CR (COVERA-HS) 180 MG Oral CAPSULE SR 24 HR TAKE TWO CAPSULES BY MOUTH EVERY DAY No current facility-administered medications for this visit. . Allergies Allergen Reactions No Known Drug Allergy Social History Socioeconomic History Marital status: Spouse name: Not on file Number of children: Not on file Years of education: Not on file Highest education level: Not on file Occupational History Not on file Social Needs Financial resource strain: Not on file Food insecurity: Worry: Not on file Inability: Not on file Transportation needs: Medical: Not on file Non-medical: Not on file Tobacco Use Smoking status: Former Smoker Packs/day: 0.50 Years: 30.00 Pack years: 15.00 Types: Cigarettes Last attempt to quit: 05/09/2013 Years since quittin.9 Smokeless tobacco: Never Used Tobacco comment: 1 pk/day Substance and Sexual Activity Alcohol use: Yes Alcohol/week: 0.0 standard drinks Comment: Occasional Drug use: Yes Types: Prescription Sexual activity: Not Currently Lifestyle Physical activity: Days per week: Not on file Minutes per session: Not on file Stress: Not on file Relationships Social connections: Talks on phone: Not on file Gets together: Not on file Attends congregation service: Not on file Active member of club or organization: Not on file Attends meetings of clubs or organizations: Not on file Relationship status: Not on file Intimate partner violence: Fear of current or ex partner: Not on file Emotionally abused: Not on file Physically abused: Not on file Forced sexual activity: Not on file Other Topics Concern Back Care Not Asked Bike Helmet Not Asked Blood Transfusions Not Asked Caffeine Concern Not Asked Exercise Not Asked Hobby Hazards Not Asked International Travel Not Asked Service Not Asked Occupational Exposure Not Asked Seat Belt Not Asked Self-Exams Not Asked Sleep Concern Not Asked Special Diet Not Asked Stress Concern Not Asked Weight Concern Not Asked Social History Narrative PATIENT IS A [employer] Family History Problem Relation Age of Onset Cancer Mother Leukemia Stroke Unknown GM Physical Examination: Ht 5' 8" (1.727 m) | Wt 275 lb (124.7 kg) | BMI 41.81 kg/m Patient was examined in the supine position. She has a Negative effusion. Patient has extension 0, flexion 90. Patient has tenderness on palpation of the medial joint line. Patient has not tenderness on palpation of the lateral joint line. Patient walks with an antalgic gait with respect to the Bilateral extremity. X-Ray: No new xray's were obtained today. Impression: 1. Primary osteoarthritis of both knees Plan: The patient was advised of the material risks and benefits of a intraarticular depomedrol injection and verbal informed consent was obtained. The skin was prepped with an betadine sponge and the bilaterally knee lateral suprapatellar space was injected with 80 mg of Depo-medrol in 2cc of 1% plain lidocaine and 1cc of 0.5% marcaine. She tolerated the injection well with no associated complications. A band aid was applied to the injection site. Possible side effects were discussed as was the use of ice and over the counter Tylenol or ibuprofen for post injection discomfort. she was given the post injection sheet. All questions were answered today. Follow up: Schedule follow-up here as needed if symptoms worsen. Author: CRISTINA Connors 04/29/2019 10:46 documented in this encounter Plan of Treatment Name Type Priority Associated Diagnoses Order Schedule INJECTION, JOINT Procedures Routine Primary osteoarthritis of Ordered: SHOUDLER HIP KNEE OR both knees BURSA Health Maintenance Due Date Last Done Comments DEPRESSION SCREENING 1963 ZOSTER IMMUNIZATION SERIES 2001 (1 of 2) COLONOSCOPY SCREENING 02/18/2016 02/17/2007 FALL RISK ASSESSMENT 2016 OSTEOPOROSIS SCREENING 2016 MEDICARE ANNUAL WELLNESS 10/28/2018 10/28/2017 VISIT PNEUMOCOCCAL 65+YRS (2 of 2 10/28/2018 10/28/2017 - PPSV23) INFLUENZA VACCINE (#1) 2019 04/03/2018, 05/13/2017, 04/30/2016, Additional history exists DIABETES SCREENING 10/17/2019 10/16/2018, 09/23/2017, 08/01/2015, Additional history exists LIPID DISORDER SCREENING 10/20/2019 10/19/2018, 10/16/2018, 09/23/2017, Additional history exists MAMMOGRAM (SCREENING) 11/18/2019 11/17/2018, 10/28/2017, 02/15/2016, Additional history exists HPV IMMUNIZATION SERIES Aged Out No longer eligible based on patient's age to complete this topic MENINGOCOCCAL VACCINE IMM Aged Out No longer eligible based on patient's age to complete this topic documented as of this encounter Goals Goal Patient Goal Associated Recent Patient-Stated? Author Type Problems Progress Blood Pressure Blood Pressure Essential 175/102 No Aayush, < 140/90 hypertension (04/29/2019 Taylor, 10:43 AM EDT) Note: Hypertension Care Plan Based on the [...] Educational Resources. record my blood pressure results. Anjel is safe and secure way for you [...] Educational Resources: National Heart, Lung, & Blood [place] http://nhlbi.nih.gov/hbp/index.html The DASH Diet Eating Plan http://www.nhlbi.nih.gov/health/health-topics/ topics/dash/ Academy of Nutrition & DIetetics http://eatright.org National Smoking Cessation Site http://smokefree.gov Blood Pressure < Blood Pressure 175/102 (04/29/2019 No Taylor Looney, 150/90 10:43 AM EDT) Note: This is an individualized treatment (blood pressure) goal for Rubina Cortes: Displayed above (on the left) is your goal for blood pressure control. Your most recent blood pressure is also shown above, on the right. You should try to achieve blood pressures that are lower than your goal listed above (on the left). Weight loss vs. 18 mo Lifestyle 22.1 (04/29/2019 10:43 AM Taylor Boss MD max (lbs) >= 10 EDT) Note: This is an individualized lifestyle goal [...] filedocumented in this encounter Visit Diagnoses Diagnosis Primary osteoarthritis of both knees - Primary Primary localized osteoarthrosis, lower leg documented in this encounter Administered Medications Medication Order MAR Action Action Date Dose Rate Site methylPREDNISolone acetate Given 04/29/2019 10:53 160 mg Knee - Bilateral (DEPO-MEDROL) injection 80 AM EDT MG/ML 160 mg, Intra-articular, X1, 1 dose, First dose on Pam 04/29/19 at 1200 documented in this encounter Insurance Payer Benefit Plan / Subscriber ID Effective Dates Phone Address Type Group [facility] BCBS xxxxxxxxxxxx 2017-Present [facility] MEDICARE MEDICARE PART A & xxxxxxxxxx 2016-Present Medicare B (Work) documented as of this encounter
--- OUTSIDE RECORDS SUMMARY | 2019-06-26 13:30 | XMS REPORT | Summary of Care ---
:1950 Author Organization [facility] Address [address] [place] [address] Care Team Providers Name Role Phone Taylor Looney Primary Care Provider Reason for Visit Reason Comments Follow Up breathing improving Back Pain Encounter Details Date Type Department Care Team Description 06/11/2019 Office Visit [facility] Looney (shortness of breath) (Primary Dx); Practice MD Taylor Essential hypertension; [address] Degenerative [place] [address] [place] [address] [phone] Allergies Active Allergy Reactions Severity Noted Date Comments No Known Drug Allergy 04/03/2009 documented as of this encounter (statuses as of 06/11/2019) Medications Medication Sig Dispensed Refills Start Date End Date Status Eplerenone 25 MG Oral Indications: pt 0 12/05/2015 Active TabIndications: pt takes 2 takes 2 meclizine (ANTIVERT) Take 1 Tab by 60 Tab 1 10/16/2018 Active 25 MG Oral mouth THREE TabIndications: TIMES DAILY Dizziness NEEDED for dizziness/vertig o. atorvastatin (LIPITOR) Take 1 Tab by 30 Tab 2 10/19/2018 Active 20 MG Oral mouth DAILY. TabIndications: Other hyperlipidemia rivaroxaban (XARELTO) Take 1 Tab by 30 Tab 5 11/20/2018 Active 20 MG Oral Tab mouth DAILY. furosemide (LASIX) 20 TAKE ONE TABLET 30 Tab 5 04/16/2019 Active MG Oral Tab BY MOUTH EVERY DAY verapamil CR TAKE TWO 60 Cap 5 04/27/2019 Active (COVERA-HS) 180 MG CAPSULES BY Oral CAPSULE SR 24 HR MOUTH EVERY DAY celeCOXIB (CELEBREX) Take 1 Cap by 30 Cap 0 04/30/2019 Active 200 MG Oral Cap mouth DAILY. HYDROcodone-acetaminop Take 1 Tab by 90 Tab 0 05/14/2019 Active hen (NORCO) 5-325 MG mouth EVERY Oral TabIndications: EIGHT HOURS Primary osteoarthritis NEEDED (pain). of both knees Max Daily Amount: 3 Tabs. levothyroxine TAKE ONE TABLET 30 Tab 0 06/03/2019 Active (SYNTHROID) 175 MCG BY MOUTH EVERY Oral Tab MORNING BEFORE BREAKFAST torsemide (DEMADEX) 20 Take 2 Tabs by 60 Tab 0 06/08/2019 Active MG Oral Tab mouth DAILY. lisinopril (PRINIVIL, Take 1 Tab by 30 Tab 1 06/08/2019 06/07/2020 Active ZESTRIL) 10 MG Oral mouth DAILY. Tab Take 1 tablet daily cyclobenzaprine Take 1 Tab by 60 Tab 0 06/11/2019 Active (FLEXERIL) 10 MG Oral mouth THREE TabIndications: TIMES DAILY Degenerative lumbar NEEDED (muscl spinal stenosis spasm). documented as of this encounter (statuses as of 06/11/2019) Active Problems Problem Noted Date Primary osteoarthritis of both knees 04/29/2019 Essential hypertension 02/15/2016 Knee pain, bilateral 04/20/2014 Atrial fibrillation 11/02/2013 Shoulder pain 08/25/2013 Knee osteoarthritis 05/03/2013 Bilateral knee pain 02/23/2013 BMI 34.0-34.9,adult 02/17/2013 Degenerative lumbar spinal stenosis 03/23/2010 Hypothyroidism 04/03/2009 Hx: Varicose Veins of Legs 04/03/2009 documented as of this encounter (statuses as of 06/11/2019) Immunizations Name Administration Dates Next Due Depo [...] Sign Reading Time Taken Comments Blood Pressure 150/78 06/11/2019 2:45 PM EST Pulse 88 06/11/2019 2:45 PM EST Temperature 37.2 06/11/2019 2:45 PM EST C (99 F) Respiratory Rate - - Oxygen Saturation 98% 06/11/2019 2:45 PM EST Inhaled Oxygen Concentration - - Weight 147.4 kg (325 lb) 06/11/2019 2:45 PM EST Height 172.7 cm (5' 8") 06/11/2019 2:45 PM EST Body Mass Index 49.42 06/11/2019 2:45 PM EST documented in this encounter Patient Instructions Patient InstructionsTaylor Looney MD - 06/11/2019 3:00 PM EST1. Schedule appointment with cardiology 2. Follow up in 1 week and as needed documented in this encounter Progress Notes Taylor Looney MD - 06/11/2019 3:00 PM EST PATIENT: Rubina Cortes : 1950 DATE OF SERVICE: 06/11/2019 Patient comes follow up exertional SOB. Feels better: reduced edema, improved SOB Lost 9 lb since last visit Had ECHO- done today BP improved, still elevated Also complains of increasing muscle spasms in the lower back Requests Rx for muscle relaxer Past Medical History: Diagnosis Date Atrial fibrillation (HCC) 11/2013 DDD (degenerative disc disease) Hx: Varicose Veins of Legs 04/03/2009 Hypothyroidism 04/03/2009 Migraine Phlebitis Spinal stenosis Outpatient Medications as of 06/11/2019 Medication Sig Dispense Refill atorvastatin (LIPITOR) 20 [...] EVERY MORNING BEFORE BREAKFAST 30 Tab 0 lisinopril (PRINIVIL, ZESTRIL) 10 MG Oral Tab Take 1 Tab by mouth DAILY. Take 1 tablet daily 30 Tab 1 meclizine (ANTIVERT) 25 MG Oral Tab Take 1 Tab by mouth THREE TIMES DAILY NEEDED for dizziness/vertigo. 60 Tab 1 rivaroxaban (XARELTO) 20 MG Oral Tab Take 1 Tab by mouth DAILY. 30 Tab 5 torsemide (DEMADEX) 20 MG Oral Tab Take 2 Tabs by mouth DAILY. 60 Tab 0 verapamil CR (COVERA-HS) 180 MG Oral CAPSULE SR 24 HR TAKE TWO CAPSULES BY MOUTH EVERY DAY 60Cap 5 No current facility-administered medications on file as of 06/11/2019. BP 150/78 | Pulse 88 | Temp 99 F (37.2 C) (Tympanic) | Ht 5' 8" ( 1.727 m) | Wt 325 lb (147.4 kg) | SpO2 98% | BMI 49.42 kg/m General appearance: alert, well appearing, and in no distress. Chest: clear to auscultation, no wheezes, rales or rhonchi, symmetric air entry. CVS exam: normal rate, regular rhythm, normal S1, S2, no murmurs, rubs, clicks or gallops. Exam of extremities: trace pedal edema CMP, CBC - normal, TSH - improved, still slightly elevated, BNP - not significantly elevated Component Latest Ref Rng & Units 06/08/2019 06/08/2019 06/08/2019 06/08/201906/08/2019 11:10 AM 11:10 AM 11:10 AM 11:10 AM 11:10 AM WBC COUNT 3.98 - 10.04 K/uL 8.40 RBC 3.93 - 5.22 M/UL 5.14 Hemoglobin 11.2 - 15.7 g/dL 14.9 Hematocrit 34.1 - 44.9 % 47.1 (H) MCV 79.4 - 94.8 FL 91.6 MCH 25.6 - 32.2 PG 29.0 MCHC 32.2 - 35.5 g/dL 31.6 (L) Platelet Count 182 - 369 K/uL 366 MPV 9.4 - 12.3 FL 11.6 RDW 11.7 - 14.4 % 14.0 NEUTROPHILS 34.0 - 71.1 % 64.8 Lymphocyte % 19.3 - 51.7 % 21.2 MONOCYTES 4.7 - 12.5 % 9.9 Eosinophils 0.7 - 5.8 % 2.3 Basophil % 0.1 - 1.2 % 0.6 nRBC % 0.0 - 0.2 % 0.0 Neutrophil # 1.56 - 6.13 K/UL 5.45 Lymphocyte # 1.18 - 3.74 K/UL 1.78 Monocyte # 0.24 - 0.86 K/UL 0.83 Eosinophil # 0.04 - 0.36 K/UL 0.19 Basophil # 0.01 - 0.08 K/UL 0.05 Immature Gran % 0.0 - 0.4 % 1.2 (H) Immature Gran # 0.00 - 0.03 K/uL 0.10 (H) NRBC # 0.00 - 0.12 K/uL 0.00 Sodium 134 - 145 mmol/L 140 Potassium 3.5 - 5.1 mmol/L 3.8 Chloride 98 - 107 mmol/L 106 CO2 22 - 30 mmol/L 20 (L) Calcium 8.3 - 10.1 mg/dl 9.6 Albumin 3.5 - 5.0 g/dl 4.4 BUN 7 - 17 mg/dl 13 Creatinine 0.7 - 1.2 mg/dl 0.7 Glucose (Lab) 70 - 99 mg/dl 109 (H) Protein,Total 6.3 - 8.2 g/dl 8.0 Total Bilirubin 0.0 - 1.1 MG/DL 0.5 AST 15 - 46 U/L 29 ALT 9 - 52 U/L 25 ALKALINE PHOSPHATASE 40 - 150 U/L 116 eGFR See Interpretation Below ml/min/1.73ml Sq >60 BUN/Creatinine Ratio 6 - 22 RATIO 19 Anion Gap 3 - 11 mmol/L 14 (H) A/G Ratio 0.8 - 2.0 ratio 1.2 TSH 0.47 - 4.68 uIu/ml 5.22 (H) Free T4 0.8 - 2.2 NG/DL 1.8 NT PRO BNP <125 pg/ml 216 (H) Patient advised on tests results ICD-9-CM ICD-10-CM 1. SOB (shortness of breath) Most likely due to a fluid overload though BNP is not elevated Clinically improved on diuretics 786.05 R06.02 2. Essential hypertension 401.9 I10 BASIC METABOLIC PANEL 3. Degenerative lumbar spinal stenosis 724.02 M48.061 cyclobenzaprine (FLEXERIL ) 10 MG Oral Tab Patient Instructions 1. Schedule appointment with cardiology 2. Follow up in 1 week and as needed Author: Taylor Looney MD 06/11/2019 15:43 documented in this encounter Plan of Treatment Date Type Specialty Care Team Description 06/18/2019 Office Visit Family Practice Taylor Looney MD [facility] [place] [address] 08/09/2019 Office Visit Cardiology Rene Julian MD [facility] [place] [address] Name Type Priority Associated Diagnoses Date/Time BASIC METABOLIC PANEL Lab Routine Essential hypertension 06/11/2019 3:19 PM EST Health Maintenance Due Date Last Done Comments ZOSTER IMMUNIZATION SERIES 2001 (1 of 2) COLONOSCOPY SCREENING 02/18/2016 02/17/2007 OSTEOPOROSIS SCREENING 2016 MEDICARE ANNUAL WELLNESS 10/28/2018 10/28/2017 VISIT PNEUMOCOCCAL 65+YRS (2 of 2 10/28/2018 10/28/2017 - PPSV23) INFLUENZA VACCINE (#1) 2019 04/03/2018, 05/13/2017, 04/30/2016, Additional history exists LIPID DISORDER SCREENING 10/20/2019 10/19/2018, 10/16/2018, 09/23/2017, Additional history exists MAMMOGRAM (SCREENING) 11/18/2019 11/17/2018, 10/28/2017, 02/15/2016, Additional history exists DIABETES SCREENING 06/08/2020 06/08/2019, 10/16/2018, 09/23/2017, Additional history exists FALL RISK ASSESSMENT 06/08/2020 06/08/2019, 06/08/2019 DEPRESSION SCREENING 06/11/2020 06/11/2019 HPV IMMUNIZATION SERIES Aged Out No longer eligible based on patient's age to complete this topic MENINGOCOCCAL VACCINE IMM Aged Out No longer eligible based on patient's age to complete this topic documented as of this encounter Goals Goal Patient Goal Associated Recent Patient-Stated? Author Type Problems Progress Blood Pressure Blood Pressure Essential 150/78 No Aayush, < 140/90 hypertension (06/11/2019 Taylor, 2:45 PM EST) Note: Hypertension Care Plan Based on [...] Educational Resources: National Heart, Lung, & Blood [place] http://nhlbi.nih.gov/hbp/index.html The DASH Diet Eating Plan http://www.nhlbi.nih.gov/health/health-topics/ topics/dash/ Academy of Nutrition & DIetetics http://eatright.org National Smoking Cessation Site http://smokefree.gov Blood Pressure < Blood Pressure 150/78 (06/11/2019 No Taylor Looney, 150/90 2:45 PM EST) Note: This is an individualized treatment (blood pressure) goal for Rubina Cortes: Displayed above (on the left) is your goal for blood pressure control. Your most recent blood pressure is also shown above, on the right. You should try to achieve blood pressures that are lower than your goal listed above (on the left). Weight loss vs. 18 mo Lifestyle 9.2 (06/11/2019 2:45 PM Taylor Boss MD max (lbs) >= 10 [...] filedocumented in this encounter Visit Diagnoses Diagnosis SOB (shortness of breath) - Primary Shortness of breath Essential hypertension Unspecified essential hypertension Degenerative lumbar spinal stenosis Spinal stenosis, lumbar region, without neurogenic claudication documented in this encounter Insurance Payer Benefit Plan / Subscriber ID Effective Dates Phone Address Type [facility] x[facility]xxx 2017-Present [employer] MEDICARE MEDICARE PART A & xxxxxxxxxx 2016-Present Medicare B (Work) documented as of this encounter
--- NOTE | 2019-06-26 14:04 | ED ---
Shortness of Breath - HPI Summary HPI Summary: This patient is a 69 year old female presenting to [facility] with a chief complaint of shortness of breath since 2 weeks ago. She has a Hx of AFIB 2-3 years ago and states she has been fine since. She states she recently had a cardiac echo. She states she woke up this morning and experienced bleeding with urination, she is unsure if it came from her vagina or urinary tract. She states she fell 3 weeks ago and has had right flank pain since. She denies urinary burning and chest pain. The patient is post-menopausal. The patient had a normal pap smear one year ago. Medications reviewed, allergies noted. - History of Current Complaint Chief Complaint: EDShortnessOfBreath Time Seen by Provider: 06/26/19 13:25 Hx Obtained From: Patient Onset/Duration: Lasting Hours, Lasting Weeks - Allergy/Home Medications Allergies/Adverse Reactions: Allergies Allergy/AdvReac Type Severity Reaction Status Date / Time No Known Allergies Allergy Verified 03/18/18 10:23 Home Medications: Home Medications Atorvastatin* [Lipitor*] 20 mg PO DAILY 06/26/19 [History Confirmed 06/26/19] Cyclobenzaprine TAB* [Flexeril 10 MG TAB*] 10 mg PO TID PRN 06/26/19 [History Confirmed 06/26/19] Lisinopril TAB* [Prinivil TAB*] 10 mg PO DAILY 06/26/19 [History Confirmed 06/26] Meclizine TAB* [Antivert 12.5 TAB*] 25 mg PO TID PRN 06/26/19 [History Confirmed 06/26/19] PMH/Surg Hx/FS Hx/Imm Hx Endocrine/Hematology History: Reports: Hx Thyroid Disease Denies: Hx Diabetes Cardiovascular History: Reports: Hx Angina - TIGHTNESS, Hx Hypercholesterolemia , Hx Hypertension Denies: Hx Pacemaker/ICD Respiratory History: Reports: Other Respiratory Problems/Disorders - EX SMOKER Denies: Hx Asthma, Hx Chronic Obstructive Pulmonary Disease (COPD) History: Denies: Hx Renal Disease Musculoskeletal History: Reports: Hx Arthritis Sensory History: Reports: Hx Contacts or Glasses Denies: Hx Cataracts, Hx Eye Injury, Hx Eye Prosthesis, Hx Glaucoma, Hx Legally Blind, Hx Macular Degeneration, Hx Vision Problem, Hx Deafness, Hx Hearing Aid, Hx Hearing Problem, Other Sensory Impairments Opthamlomology History: Reports: Hx Contacts or Glasses Denies: Hx Cataracts, Hx Eye Injury, Hx Eye Prosthesis, Hx Glaucoma, Hx Legally Blind, Hx Macular Degeneration, Hx Vision Problem, Other Sensory Impairments Psychiatric History: Reports: Hx Anxiety Denies: Hx Panic Disorder - Surgical History Surgery Procedure, Year, and Place: , left shoulder surgery, ablation Infectious Disease History: No Infectious Disease History: Denies: Hx Shingles, Traveled Outside the [place] in Last 30 Days - Family History Known Family History: Positive: Cardiac Disease - self Negative: Hypertension, Diabetes - Social History Alcohol Use: None Alcohol Amount: 3-4 MONTH Substance Use Type: Reports: None Smoking Status (MU): Former Smoker Type: Cigarettes Amount Used/How Often: 1/2 PPD Have You Smoked in the Last Year: Yes Review of Systems Negative: Chest Pain Positive: Shortness Of Breath Positive: flank pain, hematuria. Negative: burning All Other Systems Reviewed And Are Negative: Yes Physical Exam - Summary Physical Exam Summary: Constitutional: Well-developed, Well-nourished, Alert. (-) Distressed Skin: Warm, Dry HENT: Normocephalic; Atraumatic Eyes: Conjunctiva normal Neck: Musculoskeletal ROM normal neck. (-) JVD, (-) Stridor, (-) Tracheal deviation Cardio: Rhythm regular, rate tachycardic, Heart sounds normal; Intact distal pulses; Radial pulses are 2+ and symmetric. (-) Murmur Pulmonary/Chest wall: Effort normal. (-) Respiratory distress, (-) Wheezes, (-) Rales Abd: Soft, (-) tenderness, (-) Distension, (-) Guarding, (-) Rebound Musculoskeletal: (-) Edema Lymph: (-) Cervical adenopathy Neuro: Alert, Oriented x3 Psych: Mood and affect Normal Triage Information Reviewed: Yes Vital Signs On Initial Exam: Initial Vitals Temp Pulse Resp BP Pulse Ox 98.2 F 86 22 99/81 98 06/26/19 13:16 06/26/19 13:16 06/26/19 13:16 06/26/19 13:16 06/26/19 13:16 Vital Signs Reviewed: Yes Procedures - Sedation Patient Received Moderate/Deep Sedation with Procedure: No Diagnostics - Vital Signs Vital Signs Temp Pulse Resp BP Pulse Ox 06/26/19 13:16 98.2 F 86 22 99/81 98 - Laboratory Result Diagrams: 06/26/19 14:18 06/26/19 14:18 Lab Statement: Any lab studies that have been ordered have been reviewed, and results considered in the medical decision making process. - Radiology CXR Radiology Interpretation Completed By: Radiologist Summary of Radiographic Findings: No active cardiopulmonary disease is noted. ED Provider has reviewed and interpreted this report. - CT CTA Chest CT Interpretation Completed By: Radiologist Summary of CT Findings: No definite pulmonary embolus is noted. No evidence of aortic dissectin is noted. 4 mm nodule noted right lower lobe laterally. ED Provider has reviewed this report. - EKG 1414 Cardiac Rate: Tachycardia - 151 BPM EKG Rhythm: Atrial Fibrillation Summary of EKG Findings: AFIB with RVR, no significant changes in regard to ST- elevations. ED Physician has reviewed and interpreted this EKG. 1600 Cardiac Rate: Tachycardia - 121 BPM EKG Rhythm: Atrial Fibrillation Summary of EKG Findings: AFIB with RVR. ED Physician has reviewed and interpreted this report. Course/Dx - Diagnoses Provider Diagnoses: Vaginal bleeding, KRISSY (acute kidney injury), Atrial fibrillation with RVR, SOB (shortness of breath) - Physician Notifications Discussed Care of Patient With: Amada Carr - Hospitalist Time Discussed With Above Provider: 16:20 - Accepts patient for admission Instructed by Provider To: Admit As Inpatient - Critical Care Time Critical Care Time: 30-74 min - 35 Mins Discharge ED - Sign-Out/Discharge Documenting (check all that apply): Patient Departure - Admission - Discharge Plan Condition: Stable Disposition: ADMITTED TO [facility] Referrals: Taylor Looney MD [Primary Care Provider] - - Attestation Statements Document Initiated by Scribe: Yes Documenting Scribe: Naldo Ritter Provider For Whom Aniaibtiffanie is Documenting (Include Credential): Ricky Hawthorne MD Scribe Attestation: Naldo Bishop scribed for Ricky Hawthorne MD on 06/26/19 at 1616. Status of Scribe Document: Ready
[2019-06-26] MEDS ORDERED: NS 0.9% 1000 ML** 1,000 ML IV ONE ×2 (14:10→16:43)
[2019-06-26 14:37] LABS: ABS Basophils 0.1 10^3/ul (0-0.2); ABS Eosinophils 0.1 10^3/ul (0-0.6); ABS Lymphocytes 1.4 10^3/ul (1.0-4.8); ABS Monocytes 1.3 10^3/ul (0-0.8); ABS Neutrophils 10.2 10^3/ul (1.5-7.7); Eosinophil % 0.9 %; Hematocrit 45 % (35-47); Hemoglobin 15.1 g/dL (12.0-16.0); Lymphocyte % 10.6 %; Mean Corpuscular HGB Conc 34 g/dL (31-36); Mean Corpuscular Hemoglobin 30 pg (27-31); Mean Corpuscular Volume 89 fL (80-97); Mean Platelet Volume 10.7 fL (7.4-10.4); Nucleated Red Blood Cells % 0.1; Platelet Count 375 10^3/uL (150-450); Red Blood Count 5.07 10^6 /uL (3.70-4.87); Red Cell Distribution Width 14 % (10-15); White Blood Count 13.1 10^3/uL (3.5-10.8)
[2019-06-26 14:48] LABS: INR 1.84 (0.82-1.09)
[2019-06-26 14:49] LABS: Albumin 4.1 g/dL (3.2-5.2); Calcium 9.9 mg/dL (8.6-10.3); Magnesium 1.7 mg/dL (1.9-2.7); Potassium 3.5 mmol/L (3.5-5.0); Total Bilirubin 0.5 mg/dL (0.2-1.0)
[2019-06-26 14:51] LABS: Troponin I 0.01 ng/mL (<0.03)
[2019-06-26 14:55] LABS: Albumin/Globulin Ratio 1.2 (1-3); BUN/Creatinine Ratio 18.9 (8-20); EGFR African American 44.2 (>60); EGFR Non-African American 36.5 (>60); Globulin 3.5 g/dL (2-4); Total Protein 7.6 g/dL (6.4-8.9)
[2019-06-26] MEDS ORDERED: Iodixanol* (CONTRAST) 320 MG/ML 100 ML SDV IV ONE (14:58)
[2019-06-26] MEDS ORDERED: Diltiazem IV push/loading dose 5 MG/ML 5 ML vial (25 mg) IV SLOW PU ONE ×2 (15:33→16:07)
[2019-06-26] MEDS ORDERED: NS 0.9% 1000 ML** 1,000 ML IV SCH (16:45)
[2019-06-26] MEDS ORDERED: Cyclobenzaprine TAB* 10 MG PO PRN (16:45)
[2019-06-26] MEDS ORDERED: Ondansetron INJ* 2 MG/ML VIAL IV PRN (16:49)
[2019-06-26] MEDS ORDERED: Diltiazem IV BAG* D5W Premix 125 MG/125 ML BAG IV ONE ×3 (16:53→18:08)
[2019-06-26] MEDS ORDERED: Magnesium Sulfate IV* 3 GM in NS 0.9% 100 ML* 100 ML IVPB ONE (16:58)
[2019-06-26] MEDS ORDERED: Potassium Chlor TAB* 20 MEQ TAB.ER PO ONE (17:00)
[2019-06-26] MEDS ORDERED: Diltiazem IV BAG* D5W Premix 125 MG/125 ML BAG IV SCH (17:00)
[2019-06-26 17:01] LABS: Urine Appearance Cloudy; Urine Bilirubin Negative (Negative); Urine Blood 3+ (Negative); Urine Glucose Negative (Negative); Urine Ketones Negative (Negative); Urine Nitrite Negative (Negative); Urine Protein 2+(100 mg/dL) (Negative); Urine Specific Gravity 1.058 (1.010-1.030); Urine Urobilinogen Negative (Negative)
[2019-06-26 17:02] LABS: Urine Color Red
[2019-06-26 17:03] LABS: Urine Bacteria Absent (Absent); Urine Red Blood Cell 3+(>10/hpf) (Absent); Urine Squamous Epithelial Cell Present (Absent); Urine White Blood Cell Absent (Absent)
[2019-06-26 17:38] LABS: TSH (Thyroid Stimulating Horm) 7.04 mcIU/mL (0.34-5.60)
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
[2019-06-26] MEDS ORDERED: NS 0.9% 100 ML* 100 ML ONE (19:47)
[2019-06-26 20:34] LABS: Free T3 3.4 pg/mL (2.5-3.9)
[2019-06-26 20:35] LABS: Free T4 1.43 ng/dL (0.61-1.12)
[2019-06-27] MEDS ORDERED: Diltiazem IV BAG* D5W Premix 125 MG/125 ML BAG IV SCH (05:00)
[2019-06-27] MEDS: Levothyroxine TAB* 175 MCG TAB PO SCH (05:55)
[2019-06-27 07:40] LABS: ABS Basophils 0.2 10^3/ul (0-0.2); ABS Eosinophils 0.3 10^3/ul (0-0.6); ABS Lymphocytes 1.5 10^3/ul (1.0-4.8); ABS Monocytes 1.4 10^3/ul (0-0.8); ABS Neutrophils 10.2 10^3/ul (1.5-7.7); Hematocrit 38 % (35-47); Hemoglobin 12.6 g/dL (12.0-16.0); Lymphocyte % 11.1 %; Mean Corpuscular HGB Conc 33 g/dL (31-36); Mean Corpuscular Hemoglobin 29 pg (27-31); Mean Corpuscular Volume 88 fL (80-97); Mean Platelet Volume 10.4 fL (7.4-10.4); Platelet Count 292 10^3/uL (150-450); Red Blood Count 4.33 10^6 /uL (3.70-4.87); Red Cell Distribution Width 14 % (10-15); White Blood Count 13.5 10^3/uL (3.5-10.8)
[2019-06-27 07:48] LABS: Calcium 8.9 mg/dL (8.6-10.3)
[2019-06-27 07:54] LABS: EGFR African American 81.6 (>60); EGFR Non-African American 67.4 (>60)
[2019-06-27] MEDS: Atorvastatin* 20 MG TAB PO SCH (08:02)
[2019-06-27] MEDS ORDERED: Verapamil SR CAP* 180 MG PO SCH (09:00)
[2019-06-27] MEDS: Verapamil SR CAP* 180 MG PO SCH (09:02)
[2019-06-27] MEDS ORDERED: Perflutren Lipid Microsphere* 3 ML VIAL ONE (11:37)
[2019-06-27] MEDS ORDERED: Magnesium Sulfate 2 GM IV* 2 GM/50 ML BAG IVPB ONE (11:38)
[2019-06-27] MEDS: Metoprolol Tartrate TAB* 25 MG PO SCH ×2 (12:14→21:32)
--- NOTE | 2019-06-27 13:20 | ECHO ---
*[facility]* [place] [address] Fax #: [phone] Transthoracic Echocardiogram Patient: Rubina Cortes : 1950 Study Date: 06/27/2019 Age: 69 Gender: F HR: 106 bpm Height: 68 in /172.7 cm BSA: 2.43 m^2 Weight: 299.4 lb /136.1 kg BMI: 45.6 kg/m^2 *Rn Lvn: * Lauryn Santiago RD *Referring Physician: * Hoa PaulReading Physician: * Tim Sotomayor MD Indications: Abnormal EKG. History: Atrial fibrillation. Risk factors: Hypertension. Morbidly obese. Labs, prior tests, procedures, and surgery: Electrophysiology study with ablation. Conclusions Summary: - Left ventricle: The cavity size is normal. Wall thickness is mildly increased. There are no regional wall motion abnormalities. Patient is in atrial fibrillation during study. Images in which atrial fibrillation rate was uncontrolled > 110 bpm which was much of study the LVEF appeared globally mildly reduced 45%. Other images in which HR was < 100 bpm, the LVEF appeared low normal 50-55%. - Right ventricle: The cavity size is mildly dilated. Systolic function is mildly reduced. Systolic pressure is within the normal range. - Left atrium: The atrium is moderately dilated. - Mitral valve: There is mild regurgitation. Recommendations: Compared to prior studies, Transesophageal echocardiogram study 11/2013 when patient was in atrial fibrillation LVEF was 50-55%. Transthoracic echocardiogram 01/2017 when patient was in sinus rhythm LVEF 60-65%, right ventricle was mildly dilated that study with normal function. Study data: Transthoracic echocardiogram. Procedure: Transthoracic echocardiography was performed. Image quality was suboptimal. The study was technically limited due to body habitus. Intravenous Definity , 2 mlswas administered. Complete 2D, spectral Doppler, and color flow Doppler. Location: Bedside. Patient status: Inpatient. Patient room number: 451. Rhythm: Atrial fibrillation. Findings Left ventricle: The cavity size is normal. Wall thickness is mildly increased. There are no regional wall motion abnormalities. Patient is in atrial fibrillation during study. Images in which atrial fibrillation rate was uncontrolled > 110 bpm which was much of study the LVEF appeared globally mildly reduced 45%. Other images in which HR was < 100 bpm, the LVEF appeared low normal 50-55%. Left ventricular diastolic function parameters are indeterminate. Right ventricle: The cavity size is mildly dilated. Systolic function is mildly reduced. Systolic pressure is within the normal range. Left atrium: The atrium is moderately dilated. Right atrium: The atrium is mildly to moderately dilated. Mitral valve: The leaflets are mildly thickened. There is no evidence of stenosis. There is mild regurgitation. Aortic valve: The valve is trileaflet. The leaflets are mildly thickened. There is no evidence of stenosis. There is no significant regurgitation. Tricuspid valve: The leaflets are normal thickness. There is no evidence of stenosis. There is trace to mild regurgitation. Pulmonic valve: The leaflets are normal thickness. There is no evidence of stenosis. There is trace regurgitation. Aorta: Aortic root: The aortic root is appears normal. Ascending aorta: The ascending aorta is appears normal. Aortic arch: The aortic arch is appears normal. Pericardium: A prominent pericardial fat pad is present. There is no significant pericardial effusion. Pulmonary arteries: The main pulmonary artery is normal-sized. Systolic pressure is within the normal range. Systemic veins: Inferior vena cava: The vessel is normal in size. There is (>= 50%) respiratory change in the IVC dimension. Measurements Left ventricle Value Ref Aortic valve Value Ref FEI, LAX 4.5 cm 3.8 - 5.2 Cecil diam, ED 2.1 cm ----- ESD, LAX (H) 3.7 cm 2.2 - 3.5 Peak v, S 1.35 m/sec ----- FS, LAX (L) 17 % 27 - 45 VTI, S 17.9 cm ----- PW, ED, LAX (H) 1.2 cm 0.6 - 0.9 Mean grad, S 3.0 mm Hg ----- FS (L) 17 % 27 - 45 Peak grad, S 7.0 mm Hg ----- Mid-wall FS 8 % LVOT/AV, VTI ratio 1.28 ----- PW, ED (H) 1.1 cm 0.6 - 0.9 NATI, VTI 4.04 cm^2 ----- PW/ID, ED 0.25 ANTI, Vmax 3.05 cm^2 ----- E', lat cecil, TDI (L) 9.1 cm/sec >=10.0 E/e', lat cecil, 15 Mitral valve Value Ref TDI Peak E 1.41 m/sec ----- E', med cecil, TDI 12.0 cm/sec >=7.0 Decel time 151 ms -- --- E/e', med cecil, 12 PHT 46 ms ----- TDI Mean grad, D 3.0 mm Hg ----- E', avg, TDI 10.6 cm/sec Peak grad, D 7.0 mm Hg ----- E/e', avg, TDI 13 <=14 MVA, PHT 2.5 cm^2 -- --- LVOT Value Ref Pulmonic valve Value Ref Diam, S 2.00 cm Peak v, S 0.7 m/sec ----- Area 3.1 cm^2 Peak grad, S 2.0 mm Hg ----- Peak jania, S 1.31 m/sec VTI, S 23.0 cm Tricuspid valve Value Ref Peak grad, S 7 mm Hg TR peak v 2.2 m/sec <=2.8 Mean grad, S 4 mm Hg Peak RV-RA grad, S 19 mm Hg ----- Ventricular septum Value Ref Aortic root Value Ref IVS, ED (H) 1.1 cm 0.6 - 0.9 Root diam 3.2 cm <4.5 Right ventricle Value Ref Ascending aorta Value Ref FEI, LAX 3.1 cm AAo AP diam, S 3.3 cm ----- FEI minor ax, A4C (H) 4.0 cm 1.9 - 3.5 AAo AP diam/bsa, S 1.4 cm/m^2 ----- mid Pressure, S 22 mm Hg Aortic arch Value Ref Arch diam 2.2 cm ----- Left atrium Value Ref AP dim, ES (H) 4.20 cm 2.70 - Decending aorta Value Ref 3.80 Johan peak jania 0.77 m/sec ----- ML dim, A4C 4.8 cm SI dim, A4C 6.6 cm Pulmonary artery Value Ref Vol/bsa, ES, 1-p (H) 45 ml/m^2 11 - 40 Pressure, S 20.0 mm Hg ----- A4C Vol/bsa, ES, A/L (H) 38 ml/m^2 16 - 34 Inferior vena cava Value Ref Diam 2.0 cm ----- Right atrium Value Ref SI dim, ES (H) 6.2 cm 3.4 - 5.3 ML dim, ES, A4C 4.3 cm 2.6 - 4.4 SI dim, ES, A4C (H) 6.2 cm 3.4 - 5.3 SI dim/bsa, ES, 2.5 cm/m^2 1.9 - 3.1 A4C Estimated RAP 3 mm Hg Legend: (L) and (H) pal values outside specified reference range. Prepared and electronically signed by iTm Sotomayor MD 06/27/2019 13:19
--- NOTE | 2019-06-27 13:28 | PN ---
Subjective Date of Service: 06/27/19 Interval History: Pt feels well.No new complaints. Still has vaginal bleeding/spotting Objective Active Medications: Acetaminophen (Tylenol Tab*) 650 mg PO Q6H PRN PRN Reason: PAIN - MILD Atorvastatin Calcium (Lipitor*) 20 mg PO DAILY [facility] Last Admin: 06/27/19 08:02 Dose: 20 mg Cyclobenzaprine HCl (Flexeril Tab*) 10 mg PO TID PRN PRN Reason: muscle pain Levothyroxine Sodium (Synthroid Tab*) 175 mcg PO 0600 [facility] Last Admin: 06/27/19 05:55 Dose: 175 mcg Melatonin (Melatonin) 3 mg PO BEDTIME PRN PRN Reason: SLEEP Metoprolol Tartrate (Lopressor Tab*) 12.5 mg PO Q12HR [facility] Last Admin: 06/27/19 12:14 Dose: 12.5 mg Ondansetron HCl (Zofran Inj*) 4 mg IV Q6H PRN PRN Reason: NAUSEA Rivaroxaban (Xarelto(*)) 20 mg PO QPM [facility] Verapamil HCl (Calan Sr Cap*) 360 mg PO DAILY [facility] Last Admin: 06/27/19 09:02 Dose: 360 mg Vital Signs - 8 hr 06/27/19 06/27/19 06/27/19 05:32 06:10 06:17 Temperature Pulse Rate Respiratory Rate Blood Pressure 128/71 115/78 105/79 (mmHg) O2 Sat by Pulse Oximetry 06/27/19 06/27/19 06/27/19 06:32 06:47 07:02 Temperature Pulse Rate Respiratory Rate Blood Pressure 136/66 111/73 117/75 (mmHg) O2 Sat by Pulse Oximetry 06/27/19 07:46 Temperature 98.4 F Pulse Rate 112 Respiratory 16 Rate Blood Pressure 110/69 (mmHg) O2 Sat by Pulse 93 Oximetry Oxygen Devices in Use Now: None Result Diagrams: 06/27/19 07:31 06/27/19 07:31 Assess/Plan/Problems-Billing Assessment: 69 yo F with h/o chronic a. fib (S/p ablation several years ago), hypothyroidism who presented with A. fib with RVR and KRISSY after her PCP increased her diuretic dose when she c/o SOB - Patient Problems (1) Atrial fibrillation with rapid ventricular response Comment: HR still in 120's when on 15 mg of cardizem gtt will stop cardizem and restart home Verapamil will add lopressor Echo pending It appers that pt has not f/u with since 2017 and missed her scheduled appointments (2) Uterine bleeding Comment: awaiting [employer]APE[employer] SUPPORT STAFF eval and vaginal US (3) Hypothyroidism Comment: - Continue home Levothyroxine -TSH slightly elevated to f/u as outpatient (4) Lung nodule < 6cm on CT Comment: small at 4 mm in LLL recommend f/u CT in 6 months (5) KRISSY (acute kidney injury) Comment: creat normalized after IVF (6) DVT prophylaxis Comment: - will restart Xarelto (d/w [employer]APE[employer] SUPPORT STAFF) Status and Disposition: inpatient
--- NOTE | 2019-06-27 16:47 | PN ---
Progress Note - Progress Note Date of Service: 06/27/19 Note: Spoke with pt about the findings of ultrasound: 7 cm heterogenous endometrial mass that is likely cancer. Pt's daughter was by pt's bedside. Pt got upset and anxious. She is awaiting Dr. Faria's consult for more details. As d/w [facility] its OK to start anticoagulation tonight and due to possible malignancy Lovenox will be best option. Will start Lovenox 120 mg Q12H (dose corrected for pt's obesity) will cont telem monitoring, pt likely will be able to go home tomorrow
[2019-06-27] MEDS: Enoxaparin(*) 150 MG/ML 1 ML SYRINGE SUBCUT SCH (17:30)
[2019-06-27] MEDS ORDERED: Temazepam CAP* 15 MG PO PRN (17:35)
[2019-06-27] MEDS ORDERED: Rivaroxaban TAB(*) 20 MG TAB PO SCH (18:00)
--- NOTE | 2019-06-27 19:51 | HP ---
H&P (Free Text) History and Physical: CC: vaginal bleeding HPI: pt reports vaginal spotting for the past 3-4 days. She had a change in her medication due to increased swelling and thought it might be related to that. She has a complicated medical history including a fib and has been on xeralto for management. She has had no vaginal bleeding previously since menopause which was over 10 years ago. She denies any abdominal cramping or pain. She says the pelvic sono was uncomfortable but not even painful at all. She has a slight increase in bleeding after the sono but in general she is only having enough blood to need a panty liner. She denies recent changes in bowel movements. No increased pelvic pressure. She has had increased urinary frequency but that started after increasing her diuretic due to lower extremity edema which has been worse the past few weeks. ROS: feels some SOB, fell one time but doesn't report routine dizziness, feels "dry" since increase of her medication. All other ROS is negative. Medications: see list NKDA PMH: A fib HTN Chronic lower extremity edema Hypothyroidism PSH: CS, vein stripping Training Developer Hx: Report 3 uncomplicated pregnancies. 1 CS due to the cord being an issue. No unusually heavy periods or h/o commercial teller issues such as ovarian cysts, endometriosis or fibroids. Soc Hx: Rare alcohol use, h/o cigarette use, no illicit drug use. Lives with her daughter, Veronica. PE: Gen: mildly tearful, lying in bed. Daughter present in room Abd: obese, soft, NT/ND, no masses palpated. Pelvic: done in the ED - blood noted. Did not repeat as will need endo bx in office. Ext: significant b/l edema Sono: Enlarged uterus with heterogenous mass 7.3x7.1x6cm. Unable to clearly identify endometrium. "Alternatively, a submucosal fibroid is not totally excluded". Left ovarian cystic structure ~4cm. Assessment/Plan: 69yo with PMB and endometrial mass highly suspicious for malignancy. Will be switched from Xarelto to lovenox with plans to be discharged first thing tomorrow am and f/u in our office for endometrial biopsy. If malignancy would then plan referral to commercial teller/onc. Discussed the possible diagnoses at length with the patient and her daughter. They will hear from our office in the am.
[2019-06-28] MEDS: Enoxaparin(*) 150 MG/ML 1 ML SYRINGE SUBCUT SCH ×2 (05:38→17:17)
[2019-06-28] MEDS: Levothyroxine TAB* 175 MCG TAB PO SCH (05:38)
[2019-06-28 06:29] LABS: ABS Basophils 0.1 10^3/ul (0-0.2); ABS Eosinophils 0.4 10^3/ul (0-0.6); ABS Lymphocytes 2.3 10^3/ul (1.0-4.8); ABS Monocytes 1.3 10^3/ul (0-0.8); ABS Neutrophils 6.8 10^3/ul (1.5-7.7); Eosinophil % 3.3 %; Hematocrit 37 % (35-47); Hemoglobin 12.6 g/dL (12.0-16.0); Mean Corpuscular HGB Conc 34 g/dL (31-36); Mean Corpuscular Hemoglobin 30 pg (27-31); Mean Corpuscular Volume 89 fL (80-97); Mean Platelet Volume 10.4 fL (7.4-10.4); Platelet Count 267 10^3/uL (150-450); Red Blood Count 4.19 10^6 /uL (3.70-4.87); Red Cell Distribution Width 14 % (10-15); White Blood Count 10.8 10^3/uL (3.5-10.8)
[2019-06-28 06:41] LABS: Calcium 8.8 mg/dL (8.6-10.3); Magnesium 2.3 mg/dL (1.9-2.7)
[2019-06-28 06:46] LABS: BUN/Creatinine Ratio 13.6 (8-20); EGFR African American 85.1 (>60); EGFR Non-African American 70.3 (>60)
[2019-06-28] MEDS: Metoprolol Tartrate TAB* 25 MG PO SCH ×3 (08:21→21:16)
[2019-06-28] MEDS: Verapamil SR CAP* 180 MG PO SCH (08:22)
[2019-06-28] MEDS: Atorvastatin* 20 MG TAB PO SCH (08:23)
--- NOTE | 2019-06-28 08:44 | PN ---
Subjective Date of Service: 06/28/19 Interval History: pt is very anxius and tearful today about the bx and "whats' going to happen". C /o LBP that started ever since she fell 1 month ago. Still SOB, requests her Lasix to be restarted Denies CP. HR had been in 140's this AM Objective Active Medications: Acetaminophen (Tylenol Tab*) 650 mg PO Q6H PRN PRN Reason: PAIN - MILD Atorvastatin Calcium (Lipitor*) 20 mg PO DAILY [facility] Last Admin: 06/28/19 08:23 Dose: 20 mg Cyclobenzaprine HCl (Flexeril Tab*) 10 mg PO TID PRN PRN Reason: muscle pain Last Admin: 06/28/19 08:23 Dose: 10 mg Enoxaparin Sodium (Lovenox(*)) 120 mg SUBCUT Q12H [facility] Last Admin: 06/28/19 05:38 Dose: 120 mg Levothyroxine Sodium (Synthroid Tab*) 175 mcg PO 0600 [facility] Last Admin: 06/28/19 05:38 Dose: 175 mcg Melatonin (Melatonin) 3 mg PO BEDTIME PRN PRN Reason: SLEEP Metoprolol Tartrate (Lopressor Tab*) 12.5 mg PO Q12HR [facility] Last Admin: 06/28/19 08:21 Dose: 12.5 mg Ondansetron HCl (Zofran Inj*) 4 mg IV Q6H PRN PRN Reason: NAUSEA Temazepam (Restoril Cap*) 15 mg PO BEDTIME PRN PRN Reason: INSOMNIA Last Admin: 06/27/19 23:24 Dose: 15 mg Verapamil HCl (Calan Sr Cap*) 360 mg PO DAILY [facility] Last Admin: 06/28/19 08:22 Dose: 360 mg Vital Signs - 8 hr 06/28/19 06/28/19 03:19 08:23 Temperature 97.8 F Pulse Rate 122 Respiratory 20 20 Rate Blood Pressure 98/57 (mmHg) O2 Sat by Pulse 92 Oximetry Oxygen Devices in Use Now: None Appearance: 69 yo F in nAD, AAOx3 Eyes: No Scleral Icterus, PERRLA Ears/Nose/Mouth/Throat: NL Teeth, Lips, Gums, Mucous Membranes Moist Neck: NL Appearance and Movements; NL JVP, Trachea Midline Respiratory: Symmetrical Chest Expansion and Respiratory Effort, Clear to Auscultation Cardiovascular: - - irregular Abdominal: NL Sounds; No Tenderness; No Distention, No Hepatosplenomegaly Lymphatic: No Cervical Adenopathy Extremities: No Clubbing, Cyanosis, - - lymhoedema b/l Skin: No Nodules or Sclerosis Neurological: Alert and Oriented x 3, NL Muscle Strength and Tone Result Diagrams: 06/28/19 06:13 06/28/19 06:13 Assess/Plan/Problems-Billing Assessment: 69 yo F with h/o chronic a. fib (S/p ablation several years ago), hypothyroidism who presented with A. fib with RVR and KRISSY after her PCP increased her diuretic dose when she c/o SOB - Patient Problems (1) SOB (shortness of breath) Comment: appears mulitfactorial: symptomatic a. fib, obesity, anxiety CTA neg for PE at admission (2) Atrial fibrillation with rapid ventricular response Comment: HR in 140's this aM, part of it may be due to axiety. Asked cardiology to see pt in consult. cont lopressor and home Verapamil for now Echo shows EF 45% It appears that pt has not f/u with since 2017 and missed her scheduled appointments (3) Uterine bleeding Comment: US shows 7 cm mass in endometrium with calcifications and 4 cm ovarian cyst. Appreciate Dr. Faria's consult, unfortunately pt cannot have outpatient bx today.(HR still uncontrolled) (4) Hypothyroidism Comment: - Continue home Levothyroxine -TSH slightly elevated to f/u as outpatient (5) Lung nodule < 6cm on CT Comment: small at 4 mm in LLL recommend f/u CT in 6 months (6) KRISSY (acute kidney injury) Comment: creat normalized after IVF (7) Back pain Comment: after a fall 1 month ago will start oxycodone get MRI lumbar spine (8) DVT prophylaxis Comment: - Lovenox at 120 mg Q12H Status and Disposition: inpatient
[2019-06-28] MEDS ORDERED: oxyCODONE TAB* 5 MG TAB PO PRN (08:57)
[2019-06-28] MEDS ORDERED: Furosemide TAB* 20 MG PO SCH (09:00)
[2019-06-28] MEDS ORDERED: LORazepam TAB(*) 0.5 MG PO ONE (09:18)
[2019-06-28] MEDS ORDERED: Furosemide IV* 10 MG/ML 2 ML VIAL (20 MG) IV ONE (10:32)
--- NOTE | 2019-06-28 14:34 | CONS ---
CONSULTATION REPORT: DATE OF CONSULT: 06/28/19 ATTENDING PHYSICIAN: Dr. Deangelo Carrillo, Cardiology.* (DICTATED BY JOANNE KING NP) PRIMARY PHYSICIAN: Dr. Looney. FIREBRICK AND REFRACTORY TILE REPAIRER: Dr. Sousa. CHIEF COMPLAINT: Shortness of breath, vaginal spotting. HISTORY OF PRESENT ILLNESS: This is a pleasant 69-year-old female patient who follows Dr. Sousa in our practice. Historically due to a notable history of paroxysmal AFib in the past, on Tikosyn therapy. She underwent successful AFib ablation in June [address] Dar Hammond. She has been maintained on verapamil and Xarelto therapy since. The patient states she has been in her usual state of health. She had retired in January of this year. Over the course of the last 4 to 6 weeks, she has been noticing increased dyspnea on exertion now involving minimal effort such as washing her dishes with associated substernal chest pressure and lightheadedness. The patient states she was evaluated by her primary care provider to Dr. Looney 4 weeks ago. At that time, she was noted to be hypertensive, thus she was prescribed lisinopril 10 mg a day. Lasix 20 mg a day was discontinued and she was instead prescribed torsemide 40 mg a day. She states that symptoms have been progressive and ongoing since that time. She adds that on 06/26/19 she opted for evaluation because she ambulated 5 feet and was unable to continue due to profound shortness of breath. She also notes vaginal spotting over the course of the last 3 to 4 days. She denies syncope, denies palpitations or sensation of heart racing. She adds that in the past with her AFib, she would notice increased shortness of breath. She denies any recent hospitalization, illness, or infection. Last echocardiogram 06/26/19, per report; LVEF appeared to be low normal at 50% to 55%, when her heart rate was lower than a 100 beats per minute; however, with higher rates her LVEF was globally mildly reduced at 45%. She has moderate left atrial dilatation, mild mitral regurgitation, trace to mild tricuspid insufficiency. Last stress test was the exercise nuclear stress test in 2015, at that time, the patient exercised for 10 minutes and 29 seconds achieving 7 METs, LVEF _, she had a hypertensive response. No ischemic ECG changes per report. There were small reversible hypoperfusion in the distal lateral wall toward the apex concerning for possible ischemia. PAST MEDICAL HISTORY: 1. Paroxysmal AFib. 2. Venous insufficiency. 3. Hypertension. 4. Hypothyroidism. 5. GERD. 6. Morbid obesity. 7. Hyperlipidemia. PAST SURGICAL HISTORY: Includes: 1. Cardioversion, 11/11/13. 2. Hysterectomy. 3. Varicose vein stripping. 4. AFib ablation, June 2014. HOME MEDICATIONS: Include: 1. Verapamil 360 mg a day. 2. Xarelto 20 mg a day. 3. Antivert as directed. 4. Synthroid 75 mcg a day. 5. Torsemide 40 mg a day. 6. Lipitor 20 mg a day. 7. Lisinopril 10 mg a day. 8. Flexeril as directed. ALLERGIES: No known drug allergies. FAMILY HISTORY: Noncontributory. SOCIAL HISTORY: The patient is single, lives at home with her daughter. She is a retired schoolteacher. Denies alcohol, tobacco, or drug use. She did formerly use tobacco products, however. REVIEW OF SYSTEMS: All systems have been reviewed and otherwise negative except as mentioned in the HPI. PHYSICAL EXAMINATION: Temperature 98.1, pulse 107, respirations 18, oxygenation 98%, blood pressure 126/66. General: The patient is lying upright in bed, whose daughter is at bedside, appears in no apparent distress. She is cooperative with examination. HEENT: Head is atraumatic, normocephalic. Oral mucosa is moist. Tongue is midline. Neck: Supple, trachea midline. Unable to assess for JVD due to the patient's body habitus. Cardiac: Tachycardic, S1, S2. Irregular rate and rhythm. No murmur, rub, or gallop noted. Lungs: Auscultated posteriorly, no evidence of adventitious breath sounds. Respirations are nonlabored at a rate of 20. /GI: Abdomen is obese, nontender. Hypoactive bowel sounds x4. Unable to palpate for hepatomegaly due to the patient's body habitus. Extremities: The patient has known lymphedema. There is no pitting edema. Dorsalis pedis pulse is palpated bilaterally and symmetrically 2+. Skin: Intact, no evidence of jaundice, ecchymosis or rashes appreciated. DIAGNOSTIC STUDIES/LAB DATA: Blood work from 06/28/19, white count 10.8, hemoglobin 12.6, hematocrit 37, platelets 267. Sodium 138, potassium 4, chloride 106, carbon dioxide 25, BUN 11, creatinine 0.81. INR was 1.84 on 06/26 reflective for Xarelto therapy. D-dimer elevated at 611. ECG 06/28/19; AFib, rate 121. No ST segment depression or elevation. Chest and thoracic CTA on 06/26/19; per Radiology report, no definite pulmonary embolism is noted, no evidence of aortic dissection is noted, 4 mm nodule noted in the right lower lobe laterally. Transvaginal ultrasound on 06/24/19, per Radiology report; 7.3 x 7.1 x 6.0 cm endometrial mass. For further information, please refer to vaginal ultrasound report. ASSESSMENT AND PLAN: 1. Complaints of progressive dyspnea on exertion with associated substernal chest pressure and lightheadedness that has been occurring for the past 4 to 5 weeks. The patient was noted to be in atrial fibrillation with rapid ventricular response upon presentation 06/26/19. It is possible that symptoms are due to atrial fibrillation with rapid ventricular response; however, given need for potential surgical clearance given newly diagnosed endometrial mass. We will risk stratify the patient by updating Lexiscan nuclear stress test on . The patient is currently asymptomatic, resting in bed, her heart rate is 120 beats per minute, she is still in atrial fibrillation. She is on subcutaneous Lovenox for anticoagulation given need for upcoming biopsy. We will continue verapamil 360 mg a day given LVEF one heart rate was around 100 on echocardiogram was 50% to 55%. We will increase Lopressor to 12.5 mg p.o. t.i.d. and follow closely. Recommend achieving labile heart rate control to avoid tachy-mediated cardiomyopathy. She is currently complaining of slight shortness of breath. BNP elevated. We will give a trial of 20 mg IV Lasix and follow. 2. History of paroxysmal atrial fibrillation; currently in atrial fibrillation with rapid ventricular response, heart rate 100 to 135 beats per minute, on verapamil 360 mg a day, Lopressor 12.5 mg p.o. b.i.d. and Lovenox therapy for anticoagulation. We will increase Lopressor to 12.5 mg p.o. t.i.d. and follow closely. Given need for interruption of an oral anticoagulant, we will not cardiovert at this time, she is currently stable. 3. Recently found endometrial mass with complaints of vaginal bleeding. Defer to primary team. 4. History of hypertension. The patient is currently normotensive on current medical therapy. 5. Disposition. Pending course. Dr. Carrillo has personally seen and examined the patient and agrees with the above assessment and plan. Thank you for this kind consultation. Any future questions or concerns, please do not hesitate to contact our service. JOANNE KING, PACK PULLER [id number]/CPS #: [id number] NIKOLAY
[2019-06-28] MEDS: Melatonin 3 MG TAB PO PRN (21:16)
[2019-06-29 05:11] LABS: ABS Basophils 0.1 10^3/ul (0-0.2); ABS Eosinophils 0.3 10^3/ul (0-0.6); ABS Lymphocytes 1.4 10^3/ul (1.0-4.8); ABS Monocytes 1.1 10^3/ul (0-0.8); ABS Neutrophils 5.6 10^3/ul (1.5-7.7); Eosinophil % 3.1 %; Hematocrit 36 % (35-47); Hemoglobin 12.2 g/dL (12.0-16.0); Lymphocyte % 16.6 %; Mean Corpuscular HGB Conc 34 g/dL (31-36); Mean Corpuscular Hemoglobin 30 pg (27-31); Mean Corpuscular Volume 88 fL (80-97); Mean Platelet Volume 10.3 fL (7.4-10.4); Nucleated Red Blood Cells % 0.1; Platelet Count 247 10^3/uL (150-450); Red Blood Count 4.06 10^6 /uL (3.70-4.87); Red Cell Distribution Width 14 % (10-15); White Blood Count 8.4 10^3/uL (3.5-10.8)
[2019-06-29] MEDS: Enoxaparin(*) 150 MG/ML 1 ML SYRINGE SUBCUT SCH ×2 (05:13→17:53)
[2019-06-29] MEDS: Levothyroxine TAB* 175 MCG TAB PO SCH (05:13)
[2019-06-29] MEDS: Metoprolol Tartrate TAB* 25 MG PO SCH ×4 (05:14→21:29)
[2019-06-29 05:25] LABS: BUN/Creatinine Ratio 16.2 (8-20); Calcium 8.8 mg/dL (8.6-10.3); EGFR African American 94.4 (>60)
[2019-06-29] MEDS ORDERED: Metoprolol Tartrate TAB* 25 MG PO SCH (09:13)
[2019-06-29] MEDS ORDERED: Digoxin IV* 0.5 MG/2 ML AMP (0.25 MG/ML) IV SLOW PU ONE ×2 (09:14→09:57)
[2019-06-29] MEDS ORDERED: Metoprolol Tartrate IV* 1 MG/ML 5 ML VIAL IV PRN (09:16)
[2019-06-29] MEDS: Verapamil SR CAP* 180 MG PO SCH (09:17)
[2019-06-29] MEDS: Atorvastatin* 20 MG TAB PO SCH (09:17)
[2019-06-29] MEDS: Furosemide TAB* 20 MG PO SCH (09:18)
[2019-06-29] MEDS ORDERED: Metoprolol Tartrate TAB* 25 MG PO ONE (09:27)
--- NOTE | 2019-06-29 10:11 | PN ---
Subjective Date of Service: 06/29/19 - Afib, vaginal bleeding with endometrial mass Interval History: NO events last night, patient states she is scared due to amount of vaginal bleeding she is having. Denies chest pain, Adds that her breathing has improved since IV diuresis. Denies dizziness. Medications Active Medications: Acetaminophen (Tylenol Tab*) 650 mg PO Q6H PRN PRN Reason: PAIN - MILD Atorvastatin Calcium (Lipitor*) 20 mg PO DAILY [facility] Last Admin: 06/29/19 09:17 Dose: 20 mg Cyclobenzaprine HCl (Flexeril Tab*) 10 mg PO TID PRN PRN Reason: muscle pain Last Admin: 06/28/19 08:23 Dose: 10 mg Digoxin (Digoxin Iv*) 0.25 mg IV SLOW PU ONCE ONE Stop: 06/29/19 09:58 Digoxin (Lanoxin Tab*) 0.125 mg PO 1700 [facility] Enoxaparin Sodium (Lovenox(*)) 120 mg SUBCUT Q12H [facility] Last Admin: 06/29/19 05:13 Dose: 120 mg Furosemide (Lasix Tab*) 20 mg PO DAILY [facility] Last Admin: 06/29/19 09:18 Dose: 20 mg Levothyroxine Sodium (Synthroid Tab*) 175 mcg PO 0600 [facility] Last Admin: 06/29/19 05:13 Dose: 175 mcg Melatonin (Melatonin) 3 mg PO BEDTIME PRN PRN Reason: SLEEP Last Admin: 06/28/19 21:16 Dose: 3 mg Metoprolol Tartrate (Lopressor Iv*) 5 mg IV Q6H PRN PRN Reason: BLOOD PRESSURE Metoprolol Tartrate (Lopressor Tab*) 25 mg PO Q8HR [facility] Ondansetron HCl (Zofran Inj*) 4 mg IV Q6H PRN PRN Reason: NAUSEA Oxycodone HCl (Roxycodone Tab*) 5 mg PO Q6H PRN PRN Reason: PAIN - SEVERE Temazepam (Restoril Cap*) 15 mg PO BEDTIME PRN PRN Reason: INSOMNIA Last Admin: 06/27/19 23:24 Dose: 15 mg Verapamil HCl (Calan Sr Cap*) 360 mg PO DAILY [facility] Last Admin: 06/29/19 09:17 Dose: 360 mg Objective Vital Signs: Temp Pulse Resp BP Pulse Ox 99 F 128 20 110/62 94 06/29/19 03:15 06/29/19 03:15 06/29/19 03:15 06/29/19 03:15 06/29/19 03:15 Oxygen Devices in Use Now: None Appearance: sitting on edge of bed, anxious but pleasant and oriented. Ears/Nose/Mouth/Throat: NL Teeth, Lips, Gums, Clear Oropharnyx, Mucous Membranes Moist Neck: NL Appearance and Movements; NL JVP, Trachea Midline Respiratory: Symmetrical Chest Expansion and Respiratory Effort, Clear to Auscultation Cardiovascular: - - Tachy S1, S2 irregular rate and rhythm. no murmur or gallop. Abdominal: NL Sounds; No Tenderness; No Distention Extremities: No Edema Skin: No Rash or Ulcers Neurological: Alert and Oriented x 3 Lines/Tubes/Other Access: Clean, Dry and Intact Peripheral IV Laboratory Results: 06/29/19 04:52 06/29/19 04:52 INR (Anticoag Therapy) 1.84 (0.82-1.09) H 06/26/19 14:18 Total Bilirubin 0.50 mg/dL (0.2-1.0) 06/26/19 14:18 AST 16 U/L (13-39) 06/26/19 14:18 ALT 17 U/L (7-52) 06/26/19 14:18 Alkaline Phosphatase 97 U/L (34-104) 06/26/19 14:18 B-Natriuretic Peptide 178 pg/mL (<=100) H 06/28/19 06:13 Total Protein 7.6 g/dL (6.4-8.9) 06/26/19 14:18 Albumin 4.1 g/dL (3.2-5.2) 06/26/19 14:18 Globulin 3.5 g/dL (2-4) 06/26/19 14:18 Albumin/Globulin Ratio 1.2 (1-3) 06/26/19 14:18 TSH 7.04 mcIU/mL (0.34-5.60) H 06/26/19 14:18 06/26/19 14:18 Troponin I 0.01 Laboratory Results - last 24 hr 06/28/19 06/29/19 06/29/19 06:13 04:52 04:52 WBC 8.4 RBC 4.06 Hgb 12.2 Hct 36 MCV 88 MCH 30 MCHC 34 RDW 14 Plt Count 247 MPV 10.3 Neut % (Auto) 66.8 Lymph % (Auto) 16.6 [place]k % (Auto) 12.6 Eos % (Auto) 3.1 Baso % (Auto) 0.9 Absolute Neuts (auto) 5.6 Absolute Lymphs (auto) 1.4 Absolute Monos (auto) 1.1 H Absolute Eos (auto) 0.3 Absolute Basos (auto) 0.1 Absolute Nucleated RBC 0.0 Nucleated RBC % 0.1 Sodium 136 Potassium 4.0 Chloride 105 Carbon Dioxide 24 Anion Gap 7 BUN 12 Creatinine 0.74 Est GFR ( Amer) 94.4 Est GFR (Non-Af Amer) 78.0 BUN/Creatinine Ratio 16.2 Glucose 104 H Calcium 8.8 Magnesium 2.0 B-Natriuretic Peptide 178 H Diagnostic Imaging: *[facility]* [place] [address] Fax #: [phone] Transthoracic Echocardiogram Patient: Rubina Cortes : 1950 Study Date: 06/27/2019 Age: 69 Gender: F HR: 106 bpm Height: 68 in /172.7 cm BSA: 2.43 m^2 Weight: 299.4 lb /136.1 kg BMI: 45.6 kg/m^2 *Grain Operator: * Lauryn Santiago RD *Referring Physician: * Hoa Paul *Reading Physician: * Tim Sotomayor MD Indications: Abnormal EKG. History: Atrial fibrillation. Risk factors: Hypertension. Morbidly obese. Labs, prior tests, procedures, and surgery: Electrophysiology study with ablation. Conclusions Summary: - Left ventricle: The cavity size is normal. Wall thickness is mildly increased. There are no regional wall motion abnormalities. Patient is in atrial fibrillation during study. Images in which atrial fibrillation rate was uncontrolled > 110 bpm which was much of study the LVEF appeared globally mildly reduced 45%. Other images in which HR was < 100 bpm, the LVEF appeared low normal 50-55%. - Right ventricle: The cavity size is mildly dilated. Systolic function is mildly reduced. Systolic pressure is within the normal range. - Left atrium: The atrium is moderately dilated. - Mitral valve: There is mild regurgitation. This report is only to be considered final once signed by the Provider(s) as displayed in the "<Electronically Signed by >" field (s). Absence of a signature indicates the report is in a draft status and still needs to be finalized. In the event this document was created by someone other than the signing Provider, the individual initiating the document will be listed in the "Entered by:" or "Dictated by:" cooper. EKG Data: Telemetry reviewed. Afib rate 110-140's. ECG; 06/26/2019; Afib rate 121. Assessment/Plan #1 h/o PAF;h/o successful AF [place] [address] Hammond. Patient was found to be in Afib with RVR 06/26/2019. Duration of time unknown however, she was in NSR at PCP's office on 06/08/2019. ECG from that time placed in her chart. Oddly enough her c/o GIBSON, exertional chest pain were already occurring at that time and again she was in NSR. She is to have Day 2/2 lexiscan stress test today for surgical risk stratification given new onset GIBSON And exertional chest pain. It is possible that c/o SOB is related to AF with RVR however it is difficult to tell given symptoms pre date being in AF based on 06/08/2019 ECG. For now will pursue rate control approach. Will increase Lopressor to 25mg PO TID, continue Verapamil 360mg/day. Will add IV Digoxin 250mcg x1 now and start Digoxin 125mcg/day starting 06/30/2019. Given interaction with Verapamil and Dig will check serum Dig level tomorrow. She is on Lovenox due to upcoming endometrial procedure due to mass. Historically on Xarelto therapy. We can always re -evaluate rhythm approach after lexiscan and consider AAT. #2 New onset c/o GIBSON, reduce exercise capacity and exertional chest pain. This was occurring while she was in NSR 06/08/2019. To be risk stratified with lexiscan stress test today. #3 New onset c/o vaginal bleeding with newly found endometrial mass. Reports ongoing vaginal bleeding H+H stable. Primary team following. on Lovenox due to above #1. #4 Disposition pending course. Will follow. Discussed care with Dr. Carrillo who agrees with above assessment and plan. Attending: Deangelo Carrillo
[2019-06-29] MEDS ORDERED: Regadenoson* 0.4 MG/5 ML SYRINGE ONE (11:54)
[2019-06-29] MEDS: Cyclobenzaprine TAB* 10 MG PO SCH ×2 (14:12→21:30)
--- NOTE | 2019-06-29 14:58 | PN ---
Subjective Date of Service: 06/29/19 Interval History: HOSPITALIST PROGRESS NOTE Patient seen and examined at bedside. Care reviewed and d/w Luther Pelletier RN. She feels a little better today. Back pain is less intense, and she thinks Flexeril really helped. States bleeding is minimal at this time but it may come and go. Family History: Unchanged from Admission Social History: Unchanged from Admission Past Medical History: Unchanged from Admission Objective Active Medications: Acetaminophen (Tylenol Tab*) 650 mg PO Q6H PRN PRN Reason: PAIN - MILD Atorvastatin Calcium (Lipitor*) 20 mg PO DAILY [facility] Last Admin: 06/29/19 09:17 Dose: 20 mg Cyclobenzaprine HCl (Flexeril Tab*) 10 mg PO TID [facility] Last Admin: 06/29/19 14:12 Dose: 10 mg Digoxin (Lanoxin Tab*) 0.125 mg PO 1700 [facility] Enoxaparin Sodium (Lovenox(*)) 120 mg SUBCUT Q12H [facility] Last Admin: 06/29/19 05:13 Dose: 120 mg Furosemide (Lasix Tab*) 20 mg PO DAILY [facility] Last Admin: 06/29/19 09:18 Dose: 20 mg Levothyroxine Sodium (Synthroid Tab*) 175 mcg PO 0600 [facility] Last Admin: 06/29/19 05:13 Dose: 175 mcg Melatonin (Melatonin) 3 mg PO BEDTIME PRN PRN Reason: SLEEP Last Admin: 06/28/19 21:16 Dose: 3 mg Metoprolol Tartrate (Lopressor Iv*) 5 mg IV Q6H PRN PRN Reason: BLOOD PRESSURE Metoprolol Tartrate (Lopressor Tab*) 25 mg PO Q8HR [facility] Last Admin: 06/29/19 14:13 Dose: 25 mg Ondansetron HCl (Zofran Inj*) 4 mg IV Q6H PRN PRN Reason: NAUSEA Oxycodone HCl (Roxycodone Tab*) 5 mg PO Q6H PRN PRN Reason: PAIN - SEVERE Temazepam (Restoril Cap*) 15 mg PO BEDTIME PRN PRN Reason: INSOMNIA Last Admin: 06/27/19 23:24 Dose: 15 mg Verapamil HCl (Calan Sr Cap*) 360 mg PO DAILY [facility] Last Admin: 06/29/19 09:17 Dose: 360 mg Vital Signs - 8 hr 1106/29/19 06/29/19 07:15 08:00 10:42 Temperature 97.7 F Pulse Rate 117 122 Respiratory 20 20 Rate Blood Pressure 118/80 (mmHg) O2 Sat by Pulse 97 Oximetry 06/29/19 06/29/19 14:00 14:12 Temperature 98.7 F Pulse Rate 127 Respiratory 16 18 Rate Blood Pressure 140/65 (mmHg) O2 Sat by Pulse 97 Oximetry Oxygen Devices in Use Now: None Appearance: Morbid obese lady sitting up in bed in NAD. Eyes: No Scleral Icterus Ears/Nose/Mouth/Throat: Mucous Membranes Moist Neck: Trachea Midline Respiratory: Symmetrical Chest Expansion and Respiratory Effort, Clear to Auscultation Cardiovascular: RRR - Normal S1 and S2 Abdominal: - - Morbid obese Neurological: Alert and Oriented x 3, NL Muscle Strength and Tone Result Diagrams: 06/29/19 04:52 06/29/19 04:52 Assess/Plan/Problems-Billing Assessment: 69 yo F with h/o chronic a. fib (S/p ablation several years ago), hypothyroidism who presented with A. fib with RVR and KRISSY after her PCP increased her diuretic dose when she c/o SOB. - Patient Problems (1) SOB (shortness of breath) Comment: - Probably mulitfactorial due to symptomatic Afib, morbid obesity, anxiety. - CTA negative for PE at admission. (2) Atrial fibrillation with rapid ventricular response Comment: - Cardio input appreciated - continue Verapamil, metoprolol, and add Digoxin. - Continue Lovenox. (3) Uterine bleeding Comment: - US shows 7 cm mass in endometrium with calcifications and 4 cm ovarian cyst. - D/w Dr. Faria - biopsy scheduled for 07/05/19 8:45AM with Dr Fang. Recommended continuation of Lovenox through the procedure. (4) Back pain Comment: - MRI lumbar spine showed no acute spinal lesion. - Continue Cyclobenzaprine. (5) DVT prophylaxis Comment: - Lovenox at 120 mg Q12H (6) Full code status Status and Disposition: inpatient
[2019-06-29] MEDS: Melatonin 3 MG TAB PO PRN (21:29)
[2019-06-30] MEDS: Enoxaparin(*) 150 MG/ML 1 ML SYRINGE SUBCUT SCH ×2 (05:34→18:11)
[2019-06-30] MEDS: Levothyroxine TAB* 175 MCG TAB PO SCH (05:34)
[2019-06-30] MEDS: Metoprolol Tartrate TAB* 25 MG PO SCH ×2 (05:35→17:21)
[2019-06-30] MEDS: Cyclobenzaprine TAB* 10 MG PO SCH ×3 (09:13→20:44)
[2019-06-30] MEDS: Atorvastatin* 20 MG TAB PO SCH (09:13)
[2019-06-30] MEDS: Furosemide TAB* 20 MG PO SCH (09:13)
[2019-06-30] MEDS: Verapamil SR CAP* 180 MG PO SCH (09:14)
[2019-06-30] MEDS ORDERED: Lorazepam PYXIS KEY PRN (09:28)
[2019-06-30] MEDS ORDERED: LORazepam INJ* 2 MG/ML 1 ML VIAL IV PUSH ONE (09:28)
[2019-06-30] MEDS ORDERED: Digoxin TAB* 0.125 MG PO SCH ×2 (11:30)
[2019-06-30] MEDS ORDERED: Naloxone* 0.4 MG/ML 1 ML VIAL ONE (15:29)
[2019-06-30] MEDS ORDERED: Midazolam* 1 MG/ML 5 ML VIAL (5 MG) ONE (15:29)
[2019-06-30] MEDS ORDERED: fentaNYL* 50 MCG/ML 2 ML VIAL (100 MCG VIAL) ONE (15:29)
[2019-06-30] MEDS ORDERED: Flumazenil* 0.1 MG/ML 5 ML MDV ONE (15:29)
--- NOTE | 2019-06-30 16:09 | PN ---
Subjective Date of Service: 06/30/19 - CC: GIBSON, afib, RVR Interval History: Quite winded walking to bathroom. Denies signs/symptoms of sleep apnea. Now s/p electrical CV. Medications Active Medications: Acetaminophen (Tylenol Tab*) 650 mg PO Q6H PRN PRN Reason: PAIN - MILD Atorvastatin Calcium (Lipitor*) 20 mg PO DAILY [facility] Last Admin: 06/30/19 09:13 Dose: 20 mg Cyclobenzaprine HCl (Flexeril Tab*) 10 mg PO TID [facility] Last Admin: 06/30/19 09:13 Dose: 10 mg Digoxin (Lanoxin Tab*) 0.125 mg PO DAILY@1700 [facility] Last Admin: 06/30/19 11:23 Dose: 0.125 mg Enoxaparin Sodium (Lovenox(*)) 120 mg SUBCUT Q12H [facility] Last Admin: 06/30/19 05:34 Dose: 120 mg Furosemide (Lasix Tab*) 20 mg PO DAILY [facility] Last Admin: 06/30/19 09:13 Dose: 20 mg Levothyroxine Sodium (Synthroid Tab*) 175 mcg PO 0600 [facility] Last Admin: 06/30/19 05:34 Dose: 175 mcg Melatonin (Melatonin) 3 mg PO BEDTIME PRN PRN Reason: SLEEP Last Admin: 06/29/19 21:29 Dose: 3 mg Metoprolol Tartrate (Lopressor Iv*) 5 mg IV Q6H PRN PRN Reason: BLOOD PRESSURE Miscellaneous (Ativan Pyxis Valero) 1 ea N/A .ATIVAN IV VALERO PRN PRN Reason: PYXIS VALERO Oxycodone HCl (Roxycodone Tab*) 5 mg PO Q6H PRN PRN Reason: PAIN - SEVERE Sotalol HCl (Betapace Tab*) 80 mg PO BID [facility] Temazepam (Restoril Cap*) 15 mg PO BEDTIME PRN PRN Reason: INSOMNIA Last Admin: 06/27/19 23:24 Dose: 15 mg Verapamil HCl (Calan Sr Cap*) 360 mg PO DAILY [facility] Last Admin: 06/30/19 09:14 Dose: 360 mg Objective Vital Signs: Temp Pulse Resp BP Pulse Ox 99.3 F 116 30 93/76 97 06/30/19 15:21 06/30/19 15:41 06/30/19 15:05 06/30/19 15:41 06/30/19 15:41 Oxygen Devices in Use Now: None Appearance: Lying in bed, 30 degrees, comfortable, quite overwieight. Eyes: No Scleral Icterus, PERRLA Ears/Nose/Mouth/Throat: NL Teeth, Lips, Gums, Clear Oropharnyx, Mucous Membranes Moist Neck: NL Appearance and Movements; NL JVP, Trachea Midline Respiratory: Symmetrical Chest Expansion and Respiratory Effort, Clear to Auscultation Cardiovascular: - - Tachy S1, S2 irregular rate and rhythm. no murmur or gallop. Abdominal: NL Sounds; No Tenderness; No Distention - significant abdominal obesity Extremities: No Edema - thick and mild edema Skin: No Rash or Ulcers Neurological: Alert and Oriented x 3 Lines/Tubes/Other Access: Clean, Dry and Intact Peripheral IV Laboratory Results: 06/29/19 04:52 06/29/19 04:52 INR (Anticoag Therapy) 1.84 (0.82-1.09) H 06/26/19 14:18 Total Bilirubin 0.50 mg/dL (0.2-1.0) 06/26/19 14:18 AST 16 U/L (13-39) 06/26/19 14:18 ALT 17 U/L (7-52) 06/26/19 14:18 Alkaline Phosphatase 97 U/L (34-104) 06/26/19 14:18 B-Natriuretic Peptide 178 pg/mL (<=100) H 06/28/19 06:13 Total Protein 7.6 g/dL (6.4-8.9) 06/26/19 14:18 Albumin 4.1 g/dL (3.2-5.2) 06/26/19 14:18 Globulin 3.5 g/dL (2-4) 06/26/19 14:18 Albumin/Globulin Ratio 1.2 (1-3) 06/26/19 14:18 TSH 7.04 mcIU/mL (0.34-5.60) H 06/26/19 14:18 06/26/19 14:18 Troponin I 0.01 Diagnostic Imaging: *[facility]* [place] [address] Fax #: [phone] Transthoracic Echocardiogram Patient: Rubina Cortes : 1950 Study Date: 06/27/2019 Age: 69 Gender: F HR: 106 bpm Height: 68 in /172.7 cm BSA: 2.43 m^2 Weight: 299.4 lb /136.1 kg BMI: 45.6 kg/m^2 *Food Production Associate: * Lauryn Santiago RDCS *Referring Physician: Hoa Canales *Reading Physician: * Tim Sotomayor MD Indications: Abnormal EKG. History: Atrial fibrillation. Risk factors: Hypertension. Morbidly obese. Labs, prior tests, procedures, and surgery: Electrophysiology study with ablation. Conclusions Summary: - Left ventricle: The cavity size is normal. Wall thickness is mildly increased. There are no regional wall motion abnormalities. Patient is in atrial fibrillation during study. Images in which atrial fibrillation rate was uncontrolled > 110 bpm which was much of study the LVEF appeared globally mildly reduced 45%. Other images in which HR was < 100 bpm, the LVEF appeared low normal 50-55%. - Right ventricle: The cavity size is mildly dilated. Systolic function is mildly reduced. Systolic pressure is within the normal range. - Left atrium: The atrium is moderately dilated. - Mitral valve: There is mild regurgitation. This report is only to be considered final once signed by the Provider(s) as displayed in the "<Electronically Signed by >" field (s). Absence of a signature indicates the report is in a draft status and still needs to be finalized. In the event this document was created by someone other than the signing Provider, the individual initiating the document will be listed in the "Entered by:" or "Dictated by:" cooper. EKG Data: Telemetry reviewed. Afib rate 110 +, increases with any activity Assessment/Plan 69 yo female with a hx PAF, recurred, likely for weeks based on hx on admission. Was on Xarelto as outpatient and lovenox inpatient. Original plan was to rate control, but she is on high dose BB and CCB and digoxen w/o good rate control or improvement in symptoms. Pt with newly noted endometrial mass, needs outpatient bx, per Dr Zabala this can be done on anticoagulation. #1 PAF;h/o successful AF [place] [address] Hammond. Patient was found to be in Afib with RVR 06/26/2019. Duration of time unknown, in NSR at PCP's office on 06/08/2019. Failed rate control. CV'd today. As OK to do endometrial bx on anticoagulation either lovenox or Xarelto OK from my standpoint, but needs anticoagulation for a month to minimize CVA risk although low CHADs score (0). Starting Sotalol to replace metoprolol, titrate verapamil to vitals. I doubt digoxen will help in this patient, OK to stop. I recommend evaluation of possible TRAN as outpatient. #2 New onset c/o GIBSON, reduce exercise capacity and exertional chest pain. This was occurring while she was in NSR 06/08/2019. Stress test unremarkable. Could be multifactorial: weight, deconditioning, PAF and more. #3 New onset c/o vaginal bleeding with newly found endometrial mass. Out patient bx as above.
--- NOTE | 2019-06-30 16:41 | PN ---
Subjective Date of Service: 06/30/19 Interval History: HOSPITALIST PROGRESS NOTE Patient seen and examined at bedside. Care reviewed and d/w Yaa Dangelo RN. She felt well overnight, but was very dyspneic this AM, at rest and worse with minimal exertion. Tried to walk to the bathroom and was lightheaded and near syncopal. Denies chest pain, but did have significant palpitations. She did have soda with caffeine yesterday. Family History: Unchanged from Admission Social History: Unchanged from Admission Past Medical History: Unchanged from Admission Objective Active Medications: Acetaminophen (Tylenol Tab*) 650 mg PO Q6H PRN PRN Reason: PAIN - MILD Atorvastatin Calcium (Lipitor*) 20 mg PO DAILY [facility] Last Admin: 06/30/19 09:13 Dose: 20 mg Cyclobenzaprine HCl (Flexeril Tab*) 10 mg PO TID [facility] Last Admin: 06/30/19 09:13 Dose: 10 mg Digoxin (Lanoxin Tab*) 0.125 mg PO DAILY@1700 [facility] Last Admin: 06/30/19 11:23 Dose: 0.125 mg Enoxaparin Sodium (Lovenox(*)) 120 mg SUBCUT Q12H [facility] Last Admin: 06/30/19 05:34 Dose: 120 mg Furosemide (Lasix Tab*) 20 mg PO DAILY [facility] Last Admin: 06/30/19 09:13 Dose: 20 mg Levothyroxine Sodium (Synthroid Tab*) 175 mcg PO 0600 [facility] Last Admin: 06/30/19 05:34 Dose: 175 mcg Melatonin (Melatonin) 3 mg PO BEDTIME PRN PRN Reason: SLEEP Last Admin: 06/29/19 21:29 Dose: 3 mg Metoprolol Tartrate (Lopressor Iv*) 5 mg IV Q6H PRN PRN Reason: BLOOD PRESSURE Miscellaneous (Ativan Pyxis Valero) 1 ea N/A .ATIVAN IV VALERO PRN PRN Reason: PYXIS VALERO Oxycodone HCl (Roxycodone Tab*) 5 mg PO Q6H PRN PRN Reason: PAIN - SEVERE Sotalol HCl (Betapace Tab*) 80 mg PO BID [facility] Temazepam (Restoril Cap*) 15 mg PO BEDTIME PRN PRN Reason: INSOMNIA Last Admin: 06/27/19 23:24 Dose: 15 mg Verapamil HCl (Calan Sr Cap*) 360 mg PO DAILY [facility] Last Admin: 06/30/19 09:14 Dose: 360 mg Vital Signs - 8 hr 06/30/19 06/30/19 06/30/19 09:13 10:27 11:23 Temperature Pulse Rate 125 Respiratory 20 20 Rate Blood Pressure (mmHg) O2 Sat by Pulse Oximetry 06/30/19 06/30/19 06/30/19 12:07 14:24 14:25 Temperature 99 F Pulse Rate 152 Respiratory 20 20 20 Rate Blood Pressure 110/80 (mmHg) O2 Sat by Pulse 98 Oximetry 06/30/19 06/30/19 06/30/19 15:04 15:05 15:21 Temperature 99.3 F Pulse Rate 136 126 Respiratory 20 30 Rate Blood Pressure 115/88 (mmHg) O2 Sat by Pulse 98 95 Oximetry 06/30/19 06/30/19 06/30/19 15:41 15:45 15:50 Temperature Pulse Rate 116 127 120 Respiratory Rate Blood Pressure 93/76 94/78 83/59 (mmHg) O2 Sat by Pulse 97 97 94 Oximetry 06/30/19 06/30/19 06/30/19 15:51 15:56 16:00 Temperature Pulse Rate 86 79 80 Respiratory Rate Blood Pressure 107/71 106/68 (mmHg) O2 Sat by Pulse 98 97 97 Oximetry 06/30/19 06/30/19 06/30/19 16:01 16:06 16:11 Temperature Pulse Rate 81 81 85 Respiratory Rate Blood Pressure 108/66 103/65 108/60 (mmHg) O2 Sat by Pulse 95 95 96 Oximetry 06/30/19 16:16 Temperature Pulse Rate 81 Respiratory Rate Blood Pressure 111/69 (mmHg) O2 Sat by Pulse 97 Oximetry Oxygen Devices in Use Now: None Appearance: Pleasant morbid obese lady sitting up in bed, in mild respiratory distress Eyes: No Scleral Icterus Ears/Nose/Mouth/Throat: Mucous Membranes Moist Neck: Trachea Midline Respiratory: Symmetrical Chest Expansion and Respiratory Effort, Clear to Auscultation Cardiovascular: - - Normal S1 and S2, irregularly irregular Abdominal: NL Sounds; No Tenderness; No Distention Neurological: Alert and Oriented x 3, NL Muscle Strength and Tone Result Diagrams: 06/29/19 04:52 06/29/19 04:52 Assess/Plan/Problems-Billing Assessment: 69 yo F with h/o chronic a. fib (S/p ablation several years ago), hypothyroidism who presented with A. fib with RVR and KRISSY after her PCP increased her diuretic dose when she c/o SOB. - Patient Problems (1) SOB (shortness of breath) Comment: - Probably mulitfactorial due to symptomatic Afib, morbid obesity, anxiety. - CTA negative for PE at admission. (2) Atrial fibrillation with rapid ventricular response Comment: - HR up to 150 this morning despite Verapamil, metoprolol, and Digoxin. - Patient is more symptomatic this AM and was near syncopal. - D/w Cardiology - rate control strategy is not working well and patient is more symptomatic now. As per discussion with Dr Faria, her anticoagulation does not need to be held for endometrial biopsy, so will pursue cardioversion. Antiarrhythmics after CV as per Cardiology recommendation. - Continue Lovenox. (3) Uterine bleeding Comment: - US shows 7 cm mass in endometrium with calcifications and 4 cm ovarian cyst. - D/w Dr. Faria - biopsy scheduled for 07/05/19 8:45AM with Dr Fang. Recommended continuation of Lovenox through the procedure. (4) Back pain Comment: - MRI lumbar spine showed no acute spinal lesion. - Continue Cyclobenzaprine. (5) DVT prophylaxis Comment: - Lovenox at 120 mg Q12H (6) Full code status Status and Disposition: inpatient
--- NOTE | 2019-06-30 16:46 | CARD ---
CC: Dr. Sousa; Hospitalist Service ELECTRICAL CARDIOVERSION REPORT: DATE OF CARDIOVERSION: 06/30/19 PROCEDURE: Electrical cardioversion. PRE-PROCEDURE DIAGNOSIS: Atrial fibrillation. The indications, risks, and benefits of the procedure were discussed with the patient. We verified t hat she has been on Xarelto for greater than a month until she was converted to Lovenox. She was keely nable to proceeding. DESCRIPTION OF PROCEDURE: The patient received a total of 6 mg of Versed and 50 mcg of fentanyl for sedation. Following this, using AP patches, 200 joules was delivered across the chest wall with succ essful cardioversion, normal sinus rhythm. There were no complications. Currently, she is in sinus r hythm at 84 beats a minute with blood pressure of 103/65. CONCLUSION: Successful cardioversion. No complications. [id number]/[facility] #: [id number]
[2019-06-30] MEDS: Acetaminophen TAB* 325 MG PO PRN (18:13)
[2019-06-30] MEDS: Sotalol TAB* 80 MG PO SCH (20:44)
[2019-07-01] MEDS: Enoxaparin(*) 150 MG/ML 1 ML SYRINGE SUBCUT SCH ×2 (05:16→17:17)
[2019-07-01] MEDS: Levothyroxine TAB* 175 MCG TAB PO SCH (05:17)
--- NOTE | 2019-07-01 07:54 | PN ---
Subjective Date of Service: 07/01/19 Interval History: HOSPITALIST PROGRESS NOTE Patient seen and examined at bedside. Care reviewed and d/w Claudia Byrd RN. She feels better after cardioversion. Denies chest pain, palpitations or lightheadedness. Family History: Unchanged from Admission Social History: Unchanged from Admission Past Medical History: Unchanged from Admission Objective Active Medications: Acetaminophen (Tylenol Tab*) 650 mg PO Q6H PRN PRN Reason: PAIN - MILD Last Admin: 06/30/19 18:13 Dose: 650 mg Atorvastatin Calcium (Lipitor*) 20 mg PO DAILY [facility] Last Admin: 06/30/19 09:13 Dose: 20 mg Cyclobenzaprine HCl (Flexeril Tab*) 10 mg PO TID [facility] Last Admin: 06/30/19 20:44 Dose: Not Given Enoxaparin Sodium (Lovenox(*)) 120 mg SUBCUT Q12H [facility] Last Admin: 07/01/19 05:16 Dose: 120 mg Furosemide (Lasix Tab*) 20 mg PO DAILY [facility] Last Admin: 06/30/19 09:13 Dose: 20 mg Levothyroxine Sodium (Synthroid Tab*) 175 mcg PO 0600 [facility] Last Admin: 07/01/19 05:17 Dose: 175 mcg Melatonin (Melatonin) 3 mg PO BEDTIME PRN PRN Reason: SLEEP Last Admin: 06/29/19 21:29 Dose: 3 mg Metoprolol Tartrate (Lopressor Iv*) 5 mg IV Q6H PRN PRN Reason: BLOOD PRESSURE Miscellaneous (Ativan Pyxis Valero) 1 ea N/A .ATIVAN IV VALERO PRN PRN Reason: PYXIS VALERO Oxycodone HCl (Roxycodone Tab*) 5 mg PO Q6H PRN PRN Reason: PAIN - SEVERE Sotalol HCl (Betapace Tab*) 80 mg PO BID [facility] Last Admin: 06/30/19 20:44 Dose: 80 mg Temazepam (Restoril Cap*) 15 mg PO BEDTIME PRN PRN Reason: INSOMNIA Last Admin: 06/27/19 23:24 Dose: 15 mg Verapamil HCl (Calan Sr Cap*) 360 mg PO DAILY [facility] Last Admin: 06/30/19 09:14 Dose: 360 mg Vital Signs - 8 hr 07/01/19 07/01/19 00:32 03:48 Temperature 97.9 F 98.6 F Pulse Rate 73 82 Respiratory 18 18 Rate Blood Pressure 122/80 118/61 (mmHg) O2 Sat by Pulse 93 96 Oximetry Oxygen Devices in Use Now: None Appearance: Pleasant morbid obese lady sitting up in bed in NAD Eyes: No Scleral Icterus Ears/Nose/Mouth/Throat: Mucous Membranes Moist Neck: Trachea Midline Respiratory: Symmetrical Chest Expansion and Respiratory Effort, Clear to Auscultation Cardiovascular: RRR - Normal S1 and S2 Neurological: Alert and Oriented x 3, NL Muscle Strength and Tone Result Diagrams: 06/29/19 04:52 06/29/19 04:52 Assess/Plan/Problems-Billing Assessment: 69 yo F with h/o chronic a. fib (S/p ablation several years ago), hypothyroidism who presented with A. fib with RVR and KRISSY after her PCP increased her diuretic dose when she c/o SOB. - Patient Problems (1) SOB (shortness of breath) Comment: - Probably mulitfactorial due to symptomatic Afib, morbid obesity, anxiety. - CTA negative for PE at admission. (2) Atrial fibrillation with rapid ventricular response Comment: - Severely symptomatic yesterday despite Verapamil, metoprolol, and digoxin, with HR up to 150 with exertion. - D/w Cardiology - as rate control strategy was not working well and patient was more symptomatic, decision was made to pursue cardioversion. Metoprolol and digoxin discontinued; will continue Verapamil and Sotalol was added. - As per discussion with Dr Faria, her anticoagulation does not need to be held for endometrial biopsy. - Continue Lovenox. (3) Uterine bleeding Comment: - US shows 7 cm mass in endometrium with calcifications and 4 cm ovarian cyst. - D/w Dr. Faria - biopsy scheduled for 07/05/19 8:45AM with Dr Fang. Recommended continuation of Lovenox through the procedure. (4) Back pain Comment: - MRI lumbar spine showed no acute spinal lesion. - Continue Cyclobenzaprine. (5) DVT prophylaxis Comment: - Lovenox at 120 mg Q12H (6) Full code status (7) Physical deconditioning Comment: - As per PT evaluation patient would benefit of STR. Status and Disposition: inpatient
[2019-07-01] MEDS: Cyclobenzaprine TAB* 10 MG PO SCH ×3 (09:51→20:55)
[2019-07-01] MEDS: Verapamil SR CAP* 180 MG PO SCH (09:52)
[2019-07-01] MEDS: Furosemide TAB* 20 MG PO SCH (09:53)
[2019-07-01] MEDS: Sotalol TAB* 80 MG PO SCH ×2 (09:53→20:54)
[2019-07-01] MEDS: Atorvastatin* 20 MG TAB PO SCH (09:53)
[2019-07-02] MEDS: Levothyroxine TAB* 175 MCG TAB PO SCH (05:20)
[2019-07-02] MEDS: Enoxaparin(*) 150 MG/ML 1 ML SYRINGE SUBCUT SCH ×2 (05:21→16:37)
[2019-07-02 05:34] LABS: ABS Basophils 0.1 10^3/ul (0-0.2); ABS Eosinophils 0.4 10^3/ul (0-0.6); ABS Lymphocytes 1.6 10^3/ul (1.0-4.8); ABS Neutrophils 5.8 10^3/ul (1.5-7.7); Eosinophil % 4.8 %; Hematocrit 40 % (35-47); Lymphocyte % 17.7 %; Mean Corpuscular HGB Conc 33 g/dL (31-36); Mean Corpuscular Hemoglobin 30 pg (27-31); Mean Corpuscular Volume 93 fL (80-97); Mean Platelet Volume 10.5 fL (7.4-10.4); Nucleated Red Blood Cells % 0.5; Platelet Count 289 10^3/uL (150-450); Red Blood Count 4.28 10^6 /uL (3.70-4.87); Red Cell Distribution Width 15 % (10-15); White Blood Count 8.9 10^3/uL (3.5-10.8)
[2019-07-02 05:43] LABS: BUN/Creatinine Ratio 17.6 (8-20); Blood Urea Nitrogen 12 mg/dL (6-24); CO2 Carbon Dioxide 20 mmol/L (22-32); Calcium 8.8 mg/dL (8.6-10.3); Chloride 107 mmol/L (101-111); EGFR African American 104.1 (>60); Glucose 98 mg/dL (70-100); Sodium 136 mmol/L (135-145)
[2019-07-02 06:03] LABS: Anion Gap 9 mmol/L (2-11)
--- NOTE | 2019-07-02 07:51 | PN ---
Subjective Date of Service: 07/02/19 Interval History: HOSPITALIST PROGRESS NOTE Patient seen and examined at bedside. Care reviewed and d/w Claudia Byrd RN. She is in good spirits today. Has ambulated around the unit, is doing UE exercises with resistance band. No further episodes of palpitations, GIBSON much improved. Family History: Unchanged from Admission Social History: Unchanged from Admission Past Medical History: Unchanged from Admission Objective Active Medications: Acetaminophen (Tylenol Tab*) 650 mg PO Q6H PRN PRN Reason: PAIN - MILD Last Admin: 06/30/19 18:13 Dose: 650 mg Atorvastatin Calcium (Lipitor*) 20 mg PO DAILY [facility] Last Admin: 07/01/19 09:53 Dose: 20 mg Cyclobenzaprine HCl (Flexeril Tab*) 10 mg PO TID [facility] Last Admin: 07/01/19 20:55 Dose: 10 mg Enoxaparin Sodium (Lovenox(*)) 120 mg SUBCUT Q12H [facility] Last Admin: 07/02/19 05:21 Dose: 120 mg Furosemide (Lasix Tab*) 20 mg PO DAILY [facility] Last Admin: 07/01/19 09:53 Dose: 20 mg Levothyroxine Sodium (Synthroid Tab*) 175 mcg PO 0600 [facility] Last Admin: 07/02/19 05:20 Dose: 175 mcg Melatonin (Melatonin) 3 mg PO BEDTIME PRN PRN Reason: SLEEP Last Admin: 06/29/19 21:29 Dose: 3 mg Metoprolol Tartrate (Lopressor Iv*) 5 mg IV Q6H PRN PRN Reason: BLOOD PRESSURE Miscellaneous (Ativan Pyxis Valero) 1 ea N/A .ATIVAN IV VALERO PRN PRN Reason: PYXIS VALERO Oxycodone HCl (Roxycodone Tab*) 5 mg PO Q6H PRN PRN Reason: PAIN - SEVERE Sotalol HCl (Betapace Tab*) 80 mg PO BID [facility] Last Admin: 07/01/19 20:54 Dose: 80 mg Temazepam (Restoril Cap*) 15 mg PO BEDTIME PRN PRN Reason: INSOMNIA Last Admin: 06/27/19 23:24 Dose: 15 mg Verapamil HCl (Calan Sr Cap*) 360 mg PO DAILY [facility] Last Admin: 07/01/19 09:52 Dose: 360 mg Vital Signs - 8 hr 07/02/19 03:15 Temperature 97.7 F Pulse Rate 71 Respiratory 16 Rate Blood Pressure 113/52 (mmHg) O2 Sat by Pulse 98 Oximetry Oxygen Devices in Use Now: None Appearance: Plesant morbid obese lady sitting up in a chair in NAD Eyes: No Scleral Icterus Ears/Nose/Mouth/Throat: Mucous Membranes Moist Neck: Trachea Midline Respiratory: Symmetrical Chest Expansion and Respiratory Effort, Clear to Auscultation Cardiovascular: RRR - Normal S1 and S2 Neurological: Alert and Oriented x 3, NL Muscle Strength and Tone Result Diagrams: 07/02/19 05:04 07/02/19 07:57 Assess/Plan/Problems-Billing Assessment: 69 yo F with h/o chronic a. fib (S/p ablation several years ago), hypothyroidism who presented with A. fib with RVR and KRISSY after her PCP increased her diuretic dose when she c/o SOB. - Patient Problems (1) SOB (shortness of breath) Comment: - Probably mulitfactorial due to symptomatic Afib, morbid obesity, anxiety. - CTA negative for PE at admission. (2) Atrial fibrillation with rapid ventricular response Comment: - Severely symptomatic yesterday despite Verapamil, metoprolol, and digoxin, with HR up to 150 with exertion. - D/w Cardiology - as rate control strategy was not working well and patient was more symptomatic, decision was made to pursue cardioversion. Metoprolol and digoxin discontinued; will continue Verapamil and Sotalol was added. Will need to be monitored on Telemetry for 72h while on Sotalol. - As per discussion with Dr Faria, her anticoagulation does not need to be held for endometrial biopsy. - Continue Lovenox. (3) Uterine bleeding Comment: - US shows 7 cm mass in endometrium with calcifications and 4 cm ovarian cyst. - D/w Dr. Faria - biopsy scheduled for 07/05/19 8:45AM with Dr Fang. Recommended continuation of Lovenox through the procedure. - H/H remains stable. (4) Back pain Comment: - MRI lumbar spine showed no acute spinal lesion. - Continue Cyclobenzaprine. (5) DVT prophylaxis Comment: - Lovenox at 120 mg Q12H (6) Full code status (7) Physical deconditioning Comment: - As per PT reevaluation patient is doing much better, will not need STR. Status and Disposition: inpatient. Anticipate d/c tomorrow if she continues to do well.
[2019-07-02] MEDS: Sotalol TAB* 80 MG PO SCH ×2 (08:40→21:02)
[2019-07-02] MEDS: Furosemide TAB* 20 MG PO SCH (08:40)
[2019-07-02] MEDS: Atorvastatin* 20 MG TAB PO SCH (08:40)
[2019-07-02] MEDS: Verapamil SR CAP* 180 MG PO SCH (08:41)
[2019-07-02] MEDS: Cyclobenzaprine TAB* 10 MG PO SCH ×3 (08:41→21:01)
[2019-07-02] MEDS: Meclizine TAB* 12.5 MG PO SCH ×2 (13:33→21:02)
[2019-07-02] MEDS: Acetaminophen TAB* 325 MG PO PRN (21:02)
[2019-07-03] MEDS: Levothyroxine TAB* 175 MCG TAB PO SCH (06:27)
[2019-07-03] MEDS: Meclizine TAB* 12.5 MG PO SCH (06:27)
[2019-07-03] MEDS: Enoxaparin(*) 150 MG/ML 1 ML SYRINGE SUBCUT SCH (06:30)
[2019-07-03 08:17] VITALS: BP 129/62
[2019-07-03] MEDS: Verapamil SR CAP* 180 MG PO SCH (09:27)
[2019-07-03] MEDS: Cyclobenzaprine TAB* 10 MG PO SCH (09:28)
[2019-07-03] MEDS: Furosemide TAB* 20 MG PO SCH (09:28)
[2019-07-03] MEDS: Atorvastatin* 20 MG TAB PO SCH (09:28)
[2019-07-03] MEDS: Sotalol TAB* 80 MG PO SCH (09:29)
--- NOTE | 2019-07-05 09:49 | DS ---
CC: Dr. Looney; Dr. Carrillo; Dr. Fagan; Dr. Sousa * DISCHARGE SUMMARY: DATE OF ADMISSION: 06/28/19 DATE OF DISCHARGE: 07/03/19 PRIMARY CARE PROVIDER: Dr. Looney CONSULTING CARDIOLOGISTS: Dr. Carrillo and Dr. Fagan MASH TUB COOKER OPERATOR: Dr. Sousa. CONSULTING RD MANAGER: Dr. Faria. OUTPATIENT RD MANAGER: Dr. Josesito Fang. DISCHARGE DIAGNOSES: 1. Paroxysmal atrial fibrillation with rapid ventricular response, failed conservative therapy, requiring cardioversion. 2. Mild diastolic congestive heart failure exacerbation secondary to the above. 3. Uterine bleeding with findings of an endometrial mass concerning for malignancy. SECONDARY DIAGNOSES: 1. Atrial fibrillation with history of ablation. 2. Hypertension. 3. Hypothyroidism. 4. Chronic lower extremity edema. 5. Morbid obesity with a BMI of 49.5. MEDICATION LIST: 1. Atorvastatin 20 mg p.o. daily. 2. Cyclobenzaprine 10 mg p.o. t.i.d. as needed for muscle spasms. 3. Furosemide 20 mg p.o. daily. 4. Levothyroxine 125 mcg p.o. daily. 5. Meclizine 25 mg p.o. t.i.d. as needed for dizziness. 6. Potassium chloride 20 mEq p.o. daily. 7. Verapamil SR 360 mg p.o. daily. New Medications: 1. Clonazepam 0.5 mg p.o. t.i.d. as needed for anxiety. 2. Lovenox 120 mg subcutaneously q.12 hours. 3. Sotalol 80 mg p.o. b.i.d. 4. Potassium chloride 10 mEq p.o. daily. HOSPITAL COURSE: Mrs. Cortes is a 69-year-old female with a past medical history as stated above who presented to the emergency room with a few weeks of progressive shortness of breath. For more details about her presentation, I refer you to her history and physical. The patient was found to be in atrial fibrillation with rapid ventricular rate and without complaints of dyspnea. The patient had a CTA of the chest that showed no definite pulmonary embolus is noted. No aortic dissection. There was a 4 mm nodule noted to the right lower lobe. The patient had a transthoracic echocardiogram that showed ejection fraction of 45% to 55% depending on the view with mild increasing thickness of the left ventricular wall, but no wall motion abnormalities. The patient was seen in consultation by cardiology and multiple drugs were attempted for rate control. She was continued on verapamil and started on metoprolol, digoxin was added, but unfortunately the patient continued to be in AFib with rapid ventricular rate. The patient also had complaints of vaginal bleed and she had a transvaginal ultrasound that showed findings suggestive of a heterogeneous mass within the endometrium measuring 7.3 x 7.1 x 6 cm with suggestion of calcifications. The endometrium is not clearly identified. A cystic structure in the left ovary measuring up to 4.3 cm. With the patient's age and morbid obesity, there is concern that this may represent endometrial cancer. She was seen in consultation by Gynecology (Dr. Faria) and her impression was that this endometrial mass was highly suspicious for malignancy and she was recommended switching the patient from Xarelto to Lovenox with plans for endometrial biopsy as outpatient. I did discuss the case with Dr. Faria and she confirmed that the patient does not need to stop Lovenox prior to her biopsy and she had an appointment scheduled for 07/05/19 at 8:45 a.m. to have the endometrial biopsy done by Dr. Fang. Despite her vaginal bleeding, the patient's H and H remained stable and was 13/ 40 on the day of discharge. As we were not able to control her AFib medications, a Cardiology followup was requested with Dr. Fagan and she recommended cardioversion that the patient underwent on 06/30/19. After that, the recommendation was to start sotalol and the patient was monitored on telemetry for 72 hours after the medication was started with no signs of QT prolongation. The plan is for the patient to continue anticoagulation with Lovenox for a month to minimize CVA risk, although she has a CHADS score of only 0. As described above, she can continue Lovenox for her endometrial biopsy, but if this is confirmed as a malignancy, the patient needs further surgery down the road. She should be on anticoagulation for at least a month and then her primary care provider is to decide if she is optimized to pursue any further surgery. The patient also had sustained a fall at home prior to discharge. She had complaints of back pain and on an MRI of the lumbar spine showed mild-to- moderate lumbar spondylosis with slight progression from her prior MRI from 2009. The patient responded well to Flexeril. Initially, the patient did not do well with physical therapy. She became lightheaded in physical therapy during her sessions, but after her cardioversion , she had seen an improvement and did well including stairs. It was felt that she did not require short-term rehabilitation. The patient is medically stable to be discharged home today to follow up with Dr. Looney, Dr. Sousa, and Dr. Fang as outpatient. The patient and her daughter received education about new medication side effects and also symptoms that would prompt her return to the emergency room. PHYSICAL EXAMINATION: Vital Signs: Temperature 97.5, heart rate 80, respiratory rate 18, oxygen saturation is 98% on room air, blood pressure is 129 /62. General: The patient is a pleasant morbidly obese lady sitting up in the recliner, in no acute distress. HEENT: Pupils are equal. Moist mucous membranes. CVS: Normal S1, S2. Regular rate and rhythm. Chest: Breath sounds present bilaterally with no added sounds. Abdomen is morbidly obese, soft, nontender. Bowel sounds present. Extremities: There is no pitting edema. Neuro: She is alert and oriented x3. Face is symmetric. Speech is clear. She is able to move all 4 extremities. DIET: Heart-healthy diet. Avoid caffeine. ACTIVITY: As tolerated. DISPOSITION: To home. STATUS WHILE IN THE HOSPITAL: Inpatient. CONDITION AT THE TIME OF DISCHARGE: Fair. Please keep in mind that this is a summarized version of this patient's prolonged and complex hospital stay. If you need more information, please feel free to call me at [phone] or please obtain the full medical records. TIME SPENT: Approximately 55 minutes were spent to complete this discharge. [id number]/CPS #: [id number] NIKOLAY
== END 2019-07-03 13:50 | disposition home health service (06) | DRG 309 ==
LOC: ED 13:12 → MEDTELE 16:37 → OBSVTOIN 06-28 08:29
PROVIDERS: ADMIT Internal Medicine; ATTEND Internal Medicine
PROC: 4A02XM4 Measurement of Cardiac Total Activity, External Approach (ICD-10-PCS; 2019-06-29)
PROC: 5A2204Z Restoration of Cardiac Rhythm, Single (ICD-10-PCS; principal; 2019-06-30 15:00)
DX: I48.0 Paroxysmal atrial fibrillation (principal); N17.9 Acute kidney failure, unspecified; Z68.42 Body mass index [BMI] 45.0-49.9, adult; E78.00 Pure hypercholesterolemia, unspecified; I10 Essential (primary) hypertension; M19.90 Unspecified osteoarthritis, unspecified site; F41.9 Anxiety disorder, unspecified; E03.9 Hypothyroidism, unspecified; E78.5 Hyperlipidemia, unspecified; I08.1 Rheumatic disorders of both mitral and tricuspid valves; E66.01 Morbid (severe) obesity due to excess calories; R91.1 Solitary pulmonary nodule; M54.9 Dorsalgia, unspecified; N83.209 Unspecified ovarian cyst, unspecified side; R60.0 Localized edema; N93.9 Abnormal uterine and vaginal bleeding, unspecified; N80.0 Endometriosis of uterus; I87.2 Venous insufficiency (chronic) (peripheral); Z87.891 Personal history of nicotine dependence
CPT/HCPCS: 36415; 71045; 71275; 72148; 76830; 78452; 80048; 80053; 80162; 81003; 81015; 83735; 83880; 84439; 84443; 84481; 84484; 85025; 85379; 85610; 87086; 92960; 93005; 93017; 93306; 99156; 99285; A9270-GY; A9502; C8929; G0378; G8978-GP-CI; G8978-GP-CL; G8979-GP-CI; G8980-GP-CI; J1160; J1650; J1940; J2060; J2250; J2310; J2785; J3010; J3475; J3490; Q9967